=== PATIENT | male | born 1950 | race Caucasian/White ===

== ENCOUNTER → 2018-01-30 13:49 | Outpatient (BNVA) | payer MEDICARE, BC, SELFPAY | PROVIDERS: PCP Family Medicine; Referring Provider Family Medicine; Visit Provider Nurse Practitioner Gerontology | DX: N40.2 Nodular prostate without lower urinary tract symptoms (principal); Z85.828 Personal history of other malignant neoplasm of skin | CPT/HCPCS: 36415; 84153; 99204 ==

== ENCOUNTER 2018-01-30 14:47 | Outpatient (CLI) | payer MEDICARE, BC, SELFPAY ==
[2018-02-03 10:55] LABS: PSA, Screening 46.8 ng/ml (0-4.5)
== END 2018-01-30 15:07 ==
PROVIDERS: Nurse Practitioner Gerontology; PCP Family Medicine; Visit Provider Urology
DX: N40.2 Nodular prostate without lower urinary tract symptoms (principal); Z12.5 Encounter for screening for malignant neoplasm of prostate
CPT/HCPCS: 36415; 84153; 99204

== ENCOUNTER 2018-02-11 00:38 | Outpatient (CLI) | payer MEDICARE, BC, SELFPAY ==
--- NOTE | 2018-02-11 10:10 | W.PM.OP ---
Operative Note Indications: This is a 67-year-old gentleman who has an abnormal digital rectal exam as well as an elevated PSA of 46.8 ng/mL. He presents for ultrasound-guided biopsy of the prostate. Procedure Description: The patient was brought to the radiology suite on 02/11/2018 He was given a mechanical and antibiotic bowel prep. He was placed in the left lateral position. Transrectal imaging of the prostate was performed using a 7 MHz transducer. The prostate was imaged in transverse and longitudinal planes. The prostate volume was calculated at 60 cc. The seminal vesicles were dilated. The peripheral zone appeared enlarged. Transition zone showed a midline hypoechoic corresponding to the palpable abnormality. The periprosthetic nerve block was then performed using 1% Xylocaine without epinephrine. A total of 12 laterally directed biopsies were then taken using ultrasound guidance. Each of the biopsies were sent to pathology for permanent section He tolerated this procedure well. He was cautioned about possible side effects including fevers, chills, blood in the urine, blood from the rectum and blood in the ejaculate. He will follow-up with me in 1-2 weeks to review the pathology results.
--- NOTE | 2018-02-11 10:35 | PROST_PTH ---
PATIENT: Cuauhtemoc Avalos LOC: [facility] U#:[id number] AGE/SX: 67/M ROOM: RE02/11/[address]: Jose Alfredo Bergman MD : 1950 BED: DIS: 02/11/2018 SPEC #: [id number] RECD: 02/11/18 12:42 STATUS: DIDI [facility] #: [id number] FANI: 02/11/18 10:[address]: Jose Alfredo Bergman DEPT: Surgical Specimen RECD BY: Chen Miranda ENTERED: 02/11/18 12:43 SP TYPE: PROST OTHR DR: Zelalem Vital Tissues: 1 - PROSTATE NEEDLE BIOPSY 2 - PROSTATE NEEDLE BIOPSY 3 - PROSTATE NEEDLE BIOPSY 4 - PROSTATE NEEDLE BIOPSY 5 - PROSTATE NEEDLE BIOPSY 6 - PROSTATE NEEDLE BIOPSY 7 - PROSTATE NEEDLE BIOPSY 8 - PROSTATE NEEDLE BIOPSY 9 - PROSTATE NEEDLE BIOPSY 10 - PROSTATE NEEDLE BIOPSY 11 - PROSTATE NEEDLE BIOPSY 12 - PROSTATE NEEDLE BIOPSY Procedures: GROSS AND MICRO LEVEL 4 Comments: [id number]
--- NOTE | 2018-02-11 11:50 | DI.US_ITS ---
SYMPTOMS/DIAGNOSIS: BIOPSY, PROSTATE NODULE TO LEFT POSTERIOR LOBE, N40.2 PROSTATE BIOPSY: Sonography was utilized by Dr. Bergman during the performance of a transrectal prostate gland biopsy. Please refer to the procedure report for complete details.
== END 2018-02-11 00:58 ==
PROVIDERS: PCP Family Medicine; Visit Provider Urology
DX: C61 Malignant neoplasm of prostate (principal); R97.20 Elevated prostate specific antigen [PSA]; N41.0 Acute prostatitis; N40.0 Benign prostatic hyperplasia without lower urinary tract symptoms
CPT/HCPCS: 55700; 76942; 88305

== ENCOUNTER → 2018-02-25 15:15 | Outpatient (BNVA) | payer MEDICARE, BC, SELFPAY | PROVIDERS: PCP Family Medicine; Visit Provider Urology | DX: C61 Malignant neoplasm of prostate (principal) | CPT/HCPCS: 99214 ==

== ENCOUNTER 2018-03-07 01:20 | Outpatient (CLI) | payer MEDICARE, BC, SELFPAY ==
--- NOTE | 2018-03-07 08:52 | DI.NM_ITS ---
SYMPTOM/DIAGNOSIS: PROSTATE CA, C51, ? METS BONE SCAN: The patient received 26 millicuries of Technetium 99 M MDP and whole body imaging was performed according to protocol. There is renal activity noted. There are multiple foci of radiotracer uptake in the axial and appendicular skeleton most suggestive of osseous metastatic disease. Findings include the cervical, thoracic and lumbar spine, pelvis and sacrum. Areas of increased radiotracer uptake are seen in the region of the left maxilla, proximal left humerus and both the proximal left and right femurs. There is also radiotracer uptake in the proximal right humerus. IMPRESSION: Findings consistent with widespread osseous metastatic disease.
[2018-03-07 09:29] LABS: CREATININE 1.14 mg/dL (0.70-1.30)
[2018-03-07] MEDS: Omnipaque 350 MG/ML 50 ML BTL IJ (10:17)
[2018-03-07] MEDS: Omnipaque 350 MG/ML 100 ML BTL IJ (10:17)
[2018-03-07] MEDS: Breeza Beverage 473 ML BTL PO ×2 (10:18)
--- NOTE | 2018-03-07 10:18 | DI.CT_ITS ---
SYMPTOM/DIAGNOSIS: PROSTATE CA, ? METS ABDOMEN AND PELVIC CT: CT scan of the abdomen and pelvis was performed following the uneventful administration of intravenous and oral contrast material. There are no priors for comparison. The visualized lung bases are clear. There are enlarged lymph nodes seen in the subcarinal region incompletely imaged. The largest measures 2.3 cm. in short diameter. There are fawad-aortic enlarged lymph nodes just above the aortic hiatus. The largest measures 2 cm. in maximum diameter. The liver is normal in size. There are multiple hypodense lesions within the liver. They appear to represent cysts. The largest is in the left lobe and measures 2.6 cm. in diameter. No solid hepatic masses are seen. The portal and superior mesenteric veins are patent. The gallbladder is negative. No biliary ductal dilatation is present. The pancreas, spleen and adrenal glands are unremarkable. The kidneys show normal and symmetric enhancement. No solid renal mass or obstruction is seen. There are tiny hypodensities seen in the renal cortices bilaterally. They are too small for further characterization but likely reflect small cysts. There is a 2 mm. non obstructing stone in the upper pole of the left kidney. No ureterolithiasis is seen. The urinary bladder is intact. The prostate gland is heterogeneous and enlarged. There is atherosclerosis of the abdominal aorta but no aneurysmal dilatation is seen. There is extensive fawad-aortic, aorto-caval and iliac adenopathy present. The largest left fawad-aortic lymph node measures 1.9 cm. in short axis. The largest left iliac lymph node measures 2.3 cm. in short diameter. The largest right iliac lymph node measures 3.3 cm. in diameter. No abdominal or pelvic ascites or pneumoperitoneum is present. The bowel shows no evidence of obstruction or inflammation. No evidence of an acute appendicitis is present. Sclerotic osseous lesions are identified consistent with osseous metastatic disease. IMPRESSION: 1. Enlarged heterogeneous prostate gland. 2. Findings of diffuse osseous metastatic disease. 3. Thoracic abdominal and pelvic adenopathy suggestive of metastatic disease. 4. Incidental findings in the abdomen and pelvis as described above.
== END 2018-03-07 01:40 ==
PROVIDERS: PCP Family Medicine; Visit Provider Urology
DX: C61 Malignant neoplasm of prostate (principal); C79.51 Secondary malignant neoplasm of bone; R59.0 Localized enlarged lymph nodes; N20.0 Calculus of kidney
CPT/HCPCS: 36415; 78306; 99214; 74177; 82565; J3490; Q9967

== ENCOUNTER → 2018-03-28 07:49 | Outpatient (BNVA) | payer MEDICARE, BC, SELFPAY | PROVIDERS: PCP Family Medicine; Visit Provider Urology | DX: C61 Malignant neoplasm of prostate (principal) | CPT/HCPCS: 96402; 99211; J9217 ==

== ENCOUNTER 2018-04-17 09:01 | Outpatient (CLI) | payer MEDICARE, BC, SELFPAY ==
[2018-04-17 10:04] LABS: Abs Immature Grans 0.01 k/cumm (0.0-0.09); Absolute Basophil Count 0.02 k/cumm (0.0-0.2); Absolute Eosinophil Count 0.14 k/cumm (0.0-0.7); Absolute Lymphocyte Count 2.33 k/cumm (1.2-3.4); Absolute Monocyte Count 0.62 k/cumm (0.11-0.7); Absolute Neutrophil Count 3.87 k/cumm (1.2-6.7); Basophils % 0.3; HCT 46.8 % (40.0-50.0); Immature Grans % 0.1; Lymphocytes % 33.3; Mean Corp. HGB Concentration 34.2 g/dL (32.0-36.0); Mean Corpuscular Hemoglobin 31.8 pg (27.0-33.0); Monocytes % 8.9; Neutrophils % 55.4; Platelet Count 248 x1000/uL (130-400); RBC 5.03 m/cumm (4.50-6.00); RBC Distribution Width 13.4 % (11.8-14.1); White Blood Cell Count 6.99 k/cumm (4.4-10.8)
[2018-04-17 10:23] LABS: ALT 43 U/L (12-78); AST 24 U/L (15-37); Albumin 3.5 g/dL (3.4-5.0); Anion Gap 6.3 mmol/L (3-11); BUN 17 mg/dL (7-18); Bilirubin, Total 0.5 mg/dL (0.2-1.0); CO2 30.7 mmol/L (21.0-32.0); CREATININE 1.12 mg/dL (0.70-1.30); Calcium 8.7 mg/dL (8.5-10.1); Chloride 104 mmol/L (98-107); Glucose 85 mg/dL (70-100); Potassium 4.1 mmol/L (3.5-5.1); Sodium 141 mmol/L (136-145); Total Protein 6.6 g/dL (6.4-8.2)
[2018-04-17 10:24] LABS: Alkaline Phosphatase 1279 U/L (46-116)
[2018-04-18 10:38] LABS: PSA, Diagnostic 54.6 ng/ml (0-4.5)
[2018-04-20 13:19] LABS: Testosterone, Total 112 ng/dL (240-950)
== END 2018-04-17 09:21 ==
PROVIDERS: PCP Family Medicine; Visit Provider Internal Medicine
DX: C61 Malignant neoplasm of prostate (principal)
CPT/HCPCS: 36415; 80053; 84403; 84153; 85025

== ENCOUNTER 2018-04-25 00:45 | Outpatient (CLI) | payer MEDICARE, BC, SELFPAY ==
--- NOTE | 2018-04-25 13:21 | DI.CT_ITS ---
SYMPTOM/DIAGNOSIS: STAGING EXAM, METASTATIC PROSTATE CA, C61 CT CHEST: CT scan of the chest was performed following the uneventful administration of intravenous contrast material. Comparison CT scan 03/07/18. The visualized thyroid gland is grossly unremarkable. The thoracic aorta is of normal caliber. No aneurysmal dilatation is seen. Heart size is within normal limits. No significant pericardial effusion is seen. There are enlarged lymph nodes seen in the mediastinum, particularly in the superior mediastinum. The largest lymph node measures 1.2 cm in maximal diameter. There are enlarged lymph nodes seen in the posterior mediastinum, the largest measuring almost 2 cm in short axis diameter. No pleural effusion or pneumothorax is identified. No noncalcified pulmonary nodules are seen. No infiltrates are present. The tracheobronchial tree is unremarkable. There are diffuse sclerotic metastases in the bones. No compression fractures are seen in the thoracic spine. The osseous metastatic disease appears more prominent when compared to the nuclear medicine examination from 03/07/18, particularly in the thoracic spine. A repeat bone scan may be considered for re-evaluation. There are again seen multiple hypodense lesions within the liver. IMPRESSION: 1. Diffuse skeletal sclerotic metastases. 2. Thoracic adenopathy
[2018-04-25] MEDS: Omnipaque 350 MG/ML 100 ML BTL IJ (13:24)
[2018-04-25] MEDS: Normal Saline Flush 10 ML SYR IVP (13:26)
== END 2018-04-25 01:05 ==
PROVIDERS: PCP Family Medicine; Visit Provider Internal Medicine
DX: C61 Malignant neoplasm of prostate (principal); C79.51 Secondary malignant neoplasm of bone; R59.0 Localized enlarged lymph nodes
CPT/HCPCS: 71260; J3490

== ENCOUNTER 2018-05-12 11:20 | Outpatient (CLI) | payer MEDICARE, BC, SELFPAY ==
[2018-05-12 11:37] LABS: Abs Immature Grans 0.15 k/cumm (0.0-0.09); Absolute Basophil Count 0.05 k/cumm (0.0-0.2); Absolute Eosinophil Count 0.01 k/cumm (0.0-0.7); Absolute Lymphocyte Count 2.25 k/cumm (1.2-3.4); Absolute Monocyte Count 1.22 k/cumm (0.11-0.7); Absolute Neutrophil Count 4.35 k/cumm (1.2-6.7); Basophils % 0.6; Eosinophils % 0.1; HCT 40.9 % (40.0-50.0); HGB 13.6 g/dL (13.5-17.5); Immature Grans % 1.9; Mean Corp. HGB Concentration 33.3 g/dL (32.0-36.0); Mean Corpuscular Hemoglobin 31.7 pg (27.0-33.0); Mean Corpuscular Volume 95.3 fL (80-95); Mean Platelet Volume 10.1 fL (8.0-11.0); Monocytes % 15.2; Neutrophils % 54.2; Platelet Count 242 x1000/uL (130-400); RBC 4.29 m/cumm (4.50-6.00); White Blood Cell Count 8.03 k/cumm (4.4-10.8)
[2018-05-12 11:48] LABS: ALT 42 U/L (12-78); AST 23 U/L (15-37); Albumin 3.4 g/dL (3.4-5.0); Alkaline Phosphatase 899 U/L (46-116); Anion Gap 4.4 mmol/L (3-11); BUN 17 mg/dL (7-18); Bilirubin, Total 0.4 mg/dL (0.2-1.0); CO2 30.6 mmol/L (21.0-32.0); CREATININE 1.04 mg/dL (0.70-1.30); Calcium 8.7 mg/dL (8.5-10.1); Chloride 105 mmol/L (98-107); Glucose 101 mg/dL (70-100); Potassium 4.5 mmol/L (3.5-5.1); Sodium 140 mmol/L (136-145); Total Protein 6.4 g/dL (6.4-8.2)
[2018-05-13 11:37] LABS: PSA, Diagnostic 3.9 ng/ml (0-4.5)
[2018-05-15 11:08] LABS: Testosterone, Total <7.0 ng/dL (240-950)
== END 2018-05-12 11:40 ==
PROVIDERS: PCP Family Medicine; Visit Provider Internal Medicine
DX: C61 Malignant neoplasm of prostate (principal)
CPT/HCPCS: 36415; 80053; 84403; 84153; 85025

== ENCOUNTER 2018-06-02 08:07 | Outpatient (CLI) | payer MEDICARE, BC, SELFPAY ==
[2018-06-02 08:38] LABS: Abs Immature Grans 0.07 k/cumm (0.0-0.09); Absolute Basophil Count 0.05 k/cumm (0.0-0.2); Absolute Eosinophil Count 0.01 k/cumm (0.0-0.7); Absolute Lymphocyte Count 1.89 k/cumm (1.2-3.4); Absolute Monocyte Count 1.57 k/cumm (0.11-0.7); Absolute Neutrophil Count 5.63 k/cumm (1.2-6.7); Basophils % 0.5; Eosinophils % 0.1; HGB 12.7 g/dL (13.5-17.5); Immature Grans % 0.8; Lymphocytes % 20.5; Mean Corp. HGB Concentration 33.4 g/dL (32.0-36.0); Mean Corpuscular Hemoglobin 31.9 pg (27.0-33.0); Mean Corpuscular Volume 95.5 fL (80-95); Mean Platelet Volume 10.5 fL (8.0-11.0); Neutrophils % 61.1; Platelet Count 178 x1000/uL (130-400); RBC 3.98 m/cumm (4.50-6.00); White Blood Cell Count 9.22 k/cumm (4.4-10.8)
[2018-06-02 08:56] LABS: Anisocytosis 1+; Diff Comment Diff Reviewed; Polychromasia Present
[2018-06-02 08:57] LABS: ALT 30 U/L (12-78); AST 20 U/L (15-37); Albumin 3.3 g/dL (3.4-5.0); Alkaline Phosphatase 445 U/L (46-116); Anion Gap 5.1 mmol/L (3-11); BUN 19 mg/dL (7-18); Bilirubin, Total 0.4 mg/dL (0.2-1.0); CO2 29.9 mmol/L (21.0-32.0); CREATININE 1.06 mg/dL (0.70-1.30); Calcium 8.6 mg/dL (8.5-10.1); Chloride 106 mmol/L (98-107); Glucose 91 mg/dL (70-100); Potassium 4.6 mmol/L (3.5-5.1); Sodium 141 mmol/L (136-145); Total Protein 6.3 g/dL (6.4-8.2)
[2018-06-03 09:11] LABS: PSA, Diagnostic 1.8 ng/ml (0-4.5)
[2018-06-05 22:20] LABS: Testosterone, Total <7.0 ng/dL (240-950)
== END 2018-06-02 08:27 ==
PROVIDERS: PCP Family Medicine; Visit Provider Internal Medicine
DX: C61 Malignant neoplasm of prostate (principal)
CPT/HCPCS: 36415; 80053; 84403; 84153; 85025

== ENCOUNTER 2018-06-23 12:36 | Outpatient (CLI) | payer MEDICARE, BC, SELFPAY ==
[2018-06-23 13:02] LABS: Abs Immature Grans 0.11 k/cumm (0.0-0.09); Absolute Basophil Count 0.04 k/cumm (0.0-0.2); Absolute Eosinophil Count 0.01 k/cumm (0.0-0.7); Absolute Lymphocyte Count 1.95 k/cumm (1.2-3.4); Absolute Monocyte Count 1.05 k/cumm (0.11-0.7); Absolute Neutrophil Count 4.57 k/cumm (1.2-6.7); Basophils % 0.5; Eosinophils % 0.1; HCT 36.4 % (40.0-50.0); HGB 12.1 g/dL (13.5-17.5); Immature Grans % 1.4; Lymphocytes % 25.2; Mean Corp. HGB Concentration 33.2 g/dL (32.0-36.0); Mean Corpuscular Hemoglobin 32.4 pg (27.0-33.0); Mean Corpuscular Volume 97.3 fL (80-95); Mean Platelet Volume 10.2 fL (8.0-11.0); Monocytes % 13.6; Neutrophils % 59.2; Platelet Count 187 x1000/uL (130-400); RBC 3.74 m/cumm (4.50-6.00); RBC Distribution Width 16.9 % (11.8-14.1); White Blood Cell Count 7.73 k/cumm (4.4-10.8)
[2018-06-23 13:29] LABS: ALT 29 U/L (12-78); AST 19 U/L (15-37); Albumin 3.3 g/dL (3.4-5.0); Alkaline Phosphatase 240 U/L (46-116); Anion Gap 5.9 mmol/L (3-11); BUN 14 mg/dL (7-18); Bilirubin, Total 0.4 mg/dL (0.2-1.0); CO2 30.1 mmol/L (21.0-32.0); CREATININE 0.91 mg/dL (0.70-1.30); Calcium 8.6 mg/dL (8.5-10.1); Chloride 105 mmol/L (98-107); Glucose 113 mg/dL (70-100); Potassium 4.5 mmol/L (3.5-5.1); Sodium 141 mmol/L (136-145)
[2018-06-24 09:15] LABS: PSA, Diagnostic 1.4 ng/ml (0-4.5)
[2018-06-25 06:22] LABS: Testosterone, Total <7.0 ng/dL (240-950)
== END 2018-06-23 12:56 ==
PROVIDERS: PCP Family Medicine; Visit Provider Internal Medicine
DX: C61 Malignant neoplasm of prostate (principal)
CPT/HCPCS: 36415; 80053; 84403; 84153; 85025

== ENCOUNTER 2018-07-14 08:02 | Outpatient (CLI) | payer MEDICARE, BC, SELFPAY ==
[2018-07-14 08:30] LABS: Absolute Monocyte Count 1.23 k/cumm (0.11-0.7); HGB 12.5 g/dL (13.5-17.5); Mean Corp. HGB Concentration 32.9 g/dL (32.0-36.0); Mean Corpuscular Hemoglobin 32.9 pg (27.0-33.0); Mean Platelet Volume 10.3 fL (8.0-11.0); Platelet Count 197 x1000/uL (130-400); RBC Distribution Width 17.7 % (11.8-14.1); White Blood Cell Count 7.67 k/cumm (4.4-10.8)
[2018-07-14 08:42] LABS: ALT 32 U/L (12-78); AST 18 U/L (15-37); Albumin 3.3 g/dL (3.4-5.0); Alkaline Phosphatase 180 U/L (46-116); Anion Gap 5.4 mmol/L (3-11); BUN 16 mg/dL (7-18); Bilirubin, Total 0.4 mg/dL (0.2-1.0); CO2 29.6 mmol/L (21.0-32.0); CREATININE 0.93 mg/dL (0.70-1.30); Calcium 8.9 mg/dL (8.5-10.1); Chloride 108 mmol/L (98-107); Glucose 98 mg/dL (70-100); Potassium 4.4 mmol/L (3.5-5.1); Sodium 143 mmol/L (136-145); Total Protein 5.8 g/dL (6.4-8.2)
[2018-07-14 09:00] LABS: Absolute Lymphocyte Count 2.45 k/cumm (1.2-3.4); Absolute Neutrophil Count 3.91 k/cumm (1.2-6.7)
[2018-07-14 09:01] LABS: Anisocytosis 1+; Diff Comment Manual Differential; Macrocytosis 1+; Polychromasia Present
[2018-07-15 09:25] LABS: PSA, Diagnostic 0.9 ng/ml (0-4.5)
[2018-07-16 07:36] LABS: Testosterone, Total 12 ng/dL (240-950)
== END 2018-07-14 08:22 ==
PROVIDERS: PCP Family Medicine; Visit Provider Internal Medicine
DX: C61 Malignant neoplasm of prostate (principal)
CPT/HCPCS: 36415; 80053; 84403; 84153; 85025

== ENCOUNTER 2018-08-04 16:01 | Outpatient (CLI) | payer MEDICARE, BC, SELFPAY ==
[2018-08-04 16:25] LABS: Abs Immature Grans 0.14 k/cumm (0.0-0.09); HCT 36.9 % (40.0-50.0); HGB 12.1 g/dL (13.5-17.5); Mean Corp. HGB Concentration 32.8 g/dL (32.0-36.0); Mean Corpuscular Hemoglobin 33.4 pg (27.0-33.0); Mean Corpuscular Volume 101.9 fL (80-95); Platelet Count 213 x1000/uL (130-400); RBC 3.62 m/cumm (4.50-6.00); RBC Distribution Width 17.8 % (11.8-14.1); White Blood Cell Count 6.63 k/cumm (4.4-10.8)
[2018-08-04 17:01] LABS: Absolute Lymphocyte Count 1.26 k/cumm (1.2-3.4); Absolute Monocyte Count 0.73 k/cumm (0.11-0.7); Absolute Neutrophil Count 4.51 k/cumm (1.2-6.7); Atypical Lymphocytes % 4
[2018-08-04 17:02] LABS: Diff Comment Manual Differential; Macrocytosis 2+
[2018-08-04 18:18] LABS: ALT 31 U/L (12-78); AST 15 U/L (15-37); Albumin 3.4 g/dL (3.4-5.0); Alkaline Phosphatase 139 U/L (46-116); Anion Gap 5.5 mmol/L (3-11); BUN 17 mg/dL (7-18); Bilirubin, Total 0.4 mg/dL (0.2-1.0); CO2 29.5 mmol/L (21.0-32.0); CREATININE 0.83 mg/dL (0.70-1.30); Calcium 8.6 mg/dL (8.5-10.1); Chloride 105 mmol/L (98-107); Glucose 97 mg/dL (70-100); Potassium 4.6 mmol/L (3.5-5.1); Sodium 140 mmol/L (136-145); Total Protein 5.7 g/dL (6.4-8.2)
[2018-08-06 09:46] LABS: PSA, Diagnostic 0.7 ng/ml (0-4.5)
[2018-08-08 16:37] LABS: Testosterone, Total <7.0 ng/dL (240-950)
== END 2018-08-04 16:21 ==
PROVIDERS: PCP Family Medicine; Visit Provider Internal Medicine
DX: C61 Malignant neoplasm of prostate (principal)
CPT/HCPCS: 36415; 80053; 84403; 84153; 85025

== ENCOUNTER 2018-09-01 09:18 | Outpatient (CLI) | payer MEDICARE, BC, SELFPAY ==
[2018-09-01 09:55] LABS: Abs Immature Grans 0.01 k/cumm (0.0-0.09); Absolute Basophil Count 0.02 k/cumm (0.0-0.2); Absolute Eosinophil Count 0.04 k/cumm (0.0-0.7); Absolute Lymphocyte Count 1.16 k/cumm (1.2-3.4); Absolute Monocyte Count 0.88 k/cumm (0.11-0.7); Absolute Neutrophil Count 3.42 k/cumm (1.2-6.7); Basophils % 0.4; Eosinophils % 0.7; HCT 37.6 % (40.0-50.0); HGB 11.9 g/dL (13.5-17.5); Immature Grans % 0.2; Mean Corp. HGB Concentration 31.6 g/dL (32.0-36.0); Mean Corpuscular Hemoglobin 32.9 pg (27.0-33.0); Mean Corpuscular Volume 103.9 fL (80-95); Mean Platelet Volume 9.8 fL (8.0-11.0); Monocytes % 15.9; Neutrophils % 61.8; Platelet Count 235 x1000/uL (130-400); RBC 3.62 m/cumm (4.50-6.00); RBC Distribution Width 15.9 % (11.8-14.1); White Blood Cell Count 5.53 k/cumm (4.4-10.8)
[2018-09-01 10:10] LABS: ALT 27 U/L (12-78); AST 17 U/L (15-37); Albumin 2.9 g/dL (3.4-5.0); Alkaline Phosphatase 129 U/L (46-116); Anion Gap 7.9 mmol/L (3-11); BUN 20 mg/dL (7-18); Bilirubin, Total 0.3 mg/dL (0.2-1.0); CO2 27.1 mmol/L (21.0-32.0); CREATININE 0.89 mg/dL (0.70-1.30); Chloride 108 mmol/L (98-107); Glucose 91 mg/dL (70-100); Potassium 4.3 mmol/L (3.5-5.1); Sodium 143 mmol/L (136-145); Total Protein 5.7 g/dL (6.4-8.2)
[2018-09-01 10:15] LABS: Calcium 8.4 mg/dL (8.5-10.1)
[2018-09-02 10:26] LABS: PSA, Diagnostic 0.5 ng/ml (0-4.5)
[2018-09-03 08:17] LABS: Testosterone, Total <7.0 ng/dL (240-950)
== END 2018-09-01 09:38 ==
PROVIDERS: PCP Family Medicine; Visit Provider Internal Medicine
DX: C61 Malignant neoplasm of prostate (principal)
CPT/HCPCS: 36415; 80053; 84403; 84153; 85025

== ENCOUNTER 2018-09-02 00:45 | Outpatient (CLI) | payer MEDICARE, BC, SELFPAY ==
--- NOTE | 2018-09-02 10:00 | DI.CT_ITS ---
SYMPTOMS/DIAGNOSIS: PROSTATE CA METASTATIC TO MULTIPLE SITES, C61, RESTAGING CHEST, ABDOMEN AND PELVIS CT: CT examination of the chest, abdomen and pelvis was performed with a bolus infusion of 100 cc's of Omnipaque 350 and ingestion of dilute barium. The examination is compared with previous chest CT of 04/25/[address] of 03/07/18. Note is made of widespread bony sclerotic lesions more prominent than on the previous examination particularly in the thoracic and lumbar spine. The findings are consistent with widespread prostatic metastases. No focal lung lesion identified. There are trace bilateral pleural effusions which were not previously present and there are minimal areas of atelectasis in the lung bases bilaterally along with question of slight irregular appearance of the posterior pleura raising the possibility of small pleural based masses. Previously described posterior and superior mediastinal adenopathy is less prominent on today's examination. A sample lymph node in the superior mediastinum left paratracheal measures 11 x 7 mm in diameter on today's examination as compared to 14 x 9 mm on the previous study. No evidence of pulmonary embolic disease. No thoracic aortic dissection or aneurysm. No abnormality of the tracheobronchial tree. Multiple low attenuation hepatic lesions are noted as seen on the previous examination. These appear grossly unchanged in comparison with the previous examination and appear consistent with cysts, the largest in the left lobe measuring about 26 mm in diameter. Para-aortic and paracaval adenopathy noted on previous study of 03/07/18 is significantly decreased on today's examination. Largest visible nodes now measure roughly 1 cm in diameter as compared to up to 3.3 cm in diameter on the previous examination. Spleen is unremarkable. Pancreas is unremarkable. Gallbladder and bile ducts are CT normal. Adrenals are unremarkable in appearance bilaterally. Small bilateral presumed renal cysts are noted. Nonobstructing left renal calculi noted. No evidence of renal mass or hydronephrosis. No significant abdominal wall hernia seen. No new abdominal or pelvic adenopathy. No evidence of bowel obstruction. Urinary bladder wall is thickened, urinary bladder is contracted and this finding may represent post radiation cystitis, infectious cystitis or simply be a result of the contracted state of the bladder. CONCLUSION: 1. New bilateral pleural effusions and question tiny pleural based masses posteriorly, question pleural metastatic disease not present on previous CT's of 04/25/18 and 03/07/18. 2. Increased prominence of widespread bony metastases. 3. Interval decrease in mediastinal abdominal and pelvic adenopathy in comparison with the previous examinations.
--- NOTE | 2018-09-02 10:00 | DI.NM_ITS ---
SYMPTOMS/DIAGNOSIS: PROSTATE CA METASTATIC TO MULTIPLE SITES, C61, RESTAGING BONE SCAN: Whole body bone scan was performed with intravenous infusion of 24.5 mCi of technetium 99 labelled methylene diphosphonate. Examination is compared with the previous examination of 03/07/18. The patient reportedly has a history of metastatic prostate carcinoma. On today's examination, there is a decrease in intensity of most visible lesions in comparison with the previous examination with the exception of some left sacral lesions and lower thoracic vertebral lesions. Interval decrease in number of lesions seen is also noted. CONCLUSION: Findings consistent with waxing and waning metastatic disease. I would note that the CT obtained today showed increasing sclerosis of multiple vertebral bodies, which can indicate some interval healing of previously lytic lesions, but which is an indeterminate finding.
[2018-09-02] MEDS: Breeza Beverage 473 ML BTL PO ×2 (10:41→10:42)
[2018-09-02] MEDS: Omnipaque 350 MG/ML 100 ML BTL IJ (10:42)
[2018-09-02] MEDS: Omnipaque 350 MG/ML 50 ML BTL PO (10:42)
== END 2018-09-02 01:05 ==
PROVIDERS: PCP Family Medicine; Visit Provider Internal Medicine
DX: C61 Malignant neoplasm of prostate (principal); C79.51 Secondary malignant neoplasm of bone; J90 Pleural effusion, not elsewhere classified; C77.2 Secondary and unspecified malignant neoplasm of intra-abdominal lymph nodes; R91.8 Other nonspecific abnormal finding of lung field; R59.0 Localized enlarged lymph nodes
CPT/HCPCS: 74177; 78306; 71260; J3490; Q9967

== ENCOUNTER 2018-10-13 09:40 | Outpatient (CLI) | payer MEDICARE, BC, SELFPAY ==
[2018-10-13 10:42] LABS: ALT 29 U/L (12-78); AST 13 U/L (15-37); Albumin 3.6 g/dL (3.4-5.0); Alkaline Phosphatase 181 U/L (46-116); Anion Gap 5.6 mmol/L (3-11); BUN 17 mg/dL (7-18); Bilirubin, Total 0.5 mg/dL (0.2-1.0); CO2 28.4 mmol/L (21.0-32.0); CREATININE 0.85 mg/dL (0.70-1.30); Calcium 9.1 mg/dL (8.5-10.1); Chloride 105 mmol/L (98-107); Glucose 103 mg/dL (70-100); Potassium 4.6 mmol/L (3.5-5.1); Sodium 139 mmol/L (136-145); Total Protein 6.6 g/dL (6.4-8.2)
[2018-10-14 10:25] LABS: PSA, Diagnostic 0.3 ng/ml (0-6.5)
[2018-10-15 14:49] LABS: Testosterone, Total <7.0 ng/dL (240-950)
== END 2018-10-13 10:00 ==
PROVIDERS: PCP Family Medicine; Visit Provider Internal Medicine
DX: C61 Malignant neoplasm of prostate (principal)
CPT/HCPCS: 36415; 80053; 84403; 84153

== ENCOUNTER 2018-11-19 13:48 | Outpatient (CLI) | payer MEDICARE, BC, SELFPAY ==
[2018-11-19 14:11] LABS: Abs Immature Grans 0.01 k/cumm (0.0-0.09); Absolute Basophil Count 0.02 k/cumm (0.0-0.2); Absolute Eosinophil Count 0.02 k/cumm (0.0-0.7); Absolute Lymphocyte Count 1.35 k/cumm (1.2-3.4); Absolute Neutrophil Count 3.93 k/cumm (1.2-6.7); Basophils % 0.3; Eosinophils % 0.3; HCT 44.5 % (40.0-50.0); HGB 14.9 g/dL (13.5-17.5); Immature Grans % 0.2; Lymphocytes % 23.2; Mean Corp. HGB Concentration 33.5 g/dL (32.0-36.0); Mean Corpuscular Hemoglobin 32.1 pg (27.0-33.0); Mean Corpuscular Volume 95.9 fL (80-95); Mean Platelet Volume 10.3 fL (8.0-11.0); Monocytes % 8.6; Neutrophils % 67.4; Platelet Count 244 x1000/uL (130-400); RBC 4.64 m/cumm (4.50-6.00); RBC Distribution Width 13.1 % (11.8-14.1); White Blood Cell Count 5.83 k/cumm (4.4-10.8)
[2018-11-19 14:26] LABS: ALT 35 U/L (12-78); AST 21 U/L (15-37); Albumin 3.5 g/dL (3.4-5.0); Alkaline Phosphatase 136 U/L (46-116); Anion Gap 9.1 mmol/L (3-11); BUN 19 mg/dL (7-18); Bilirubin, Total 0.5 mg/dL (0.2-1.0); CO2 25.9 mmol/L (21.0-32.0); Calcium 8.6 mg/dL (8.5-10.1); Chloride 105 mmol/L (98-107); Glucose 103 mg/dL (70-100); Potassium 4.5 mmol/L (3.5-5.1); Sodium 140 mmol/L (136-145); Total Protein 6.5 g/dL (6.4-8.2)
[2018-11-23 15:51] LABS: Testosterone, Total <7.0 ng/dL (240-950)
[2018-11-24 10:49] LABS: PSA, Diagnostic 0.3 ng/ml (0-6.5)
== END 2018-11-19 14:08 ==
PROVIDERS: PCP Family Medicine; Visit Provider Internal Medicine
DX: C61 Malignant neoplasm of prostate (principal)
CPT/HCPCS: 36415; 80053; 84153; 84403; 85025

== ENCOUNTER 2018-11-20 01:15 | Outpatient (CLI) | payer MEDICARE, BC, SELFPAY ==
--- NOTE | 2018-11-20 08:00 | DI.CT_ITS ---
SYMPTOM/DIAGNOSIS: PROSTATE CANCER C61, LUNG NODULE N91.8 CT CHEST: CT scan of the chest was performed following the uneventful administration of intravenous contrast material. Comparison is 04/25/18 The visualized thyroid gland is stable. The thoracic aorta is of normal caliber. No aneurysmal dilatation is seen. No evidence of dissection. The heart is within normal limits in size. No significant pericardial effusion is present. There is no significant thoracic adenopathy. No pleural effusion or pneumothorax is identified. There are again seen multiple hypodense lesions in the liver. They are round and well circumscribed and appear most consistent with cysts. There is a nonobstructing 2 mm stone in the upper pole of the left kidney. No pulmonary nodules are seen. There has been resolution of the pleural effusion. No focal consolidating infiltrates are identified. There is again seen extensive sclerotic metastatic disease. IMPRESSION: 1. No evidence of a pulmonary nodule 2. Resolution of the patient's previously seen pleural effusions 3. Extensive osseous metastatic disease.
[2018-11-20] MEDS: Omnipaque 350 MG/ML 100 ML BTL IJ (09:02)
== END 2018-11-20 01:35 ==
PROVIDERS: PCP Family Medicine; Visit Provider Internal Medicine
DX: C61 Malignant neoplasm of prostate (principal); R91.8 Other nonspecific abnormal finding of lung field; C79.51 Secondary malignant neoplasm of bone; N20.0 Calculus of kidney; K76.89 Other specified diseases of liver
CPT/HCPCS: 71260; J3490

== ENCOUNTER 2018-12-25 10:06 | Outpatient (CLI) | payer MEDICARE, BC, SELFPAY ==
[2018-12-25 10:28] LABS: Abs Immature Grans 0.01 k/cumm (0.0-0.09); Absolute Basophil Count 0.03 k/cumm (0.0-0.2); Absolute Eosinophil Count 0.08 k/cumm (0.0-0.7); Absolute Lymphocyte Count 2.03 k/cumm (1.2-3.4); Absolute Monocyte Count 0.65 k/cumm (0.11-0.7); Basophils % 0.6; Eosinophils % 1.6; HCT 43.3 % (40.0-50.0); HGB 14.8 g/dL (13.5-17.5); Immature Grans % 0.2; Lymphocytes % 40.6; Mean Corp. HGB Concentration 34.2 g/dL (32.0-36.0); Mean Corpuscular Hemoglobin 32.5 pg (27.0-33.0); Mean Corpuscular Volume 95.2 fL (80-95); Mean Platelet Volume 9.9 fL (8.0-11.0); Platelet Count 238 x1000/uL (130-400); RBC 4.55 m/cumm (4.50-6.00); RBC Distribution Width 13.9 % (11.8-14.1)
[2018-12-25 10:52] LABS: ALT 34 U/L (16-63); AST 18 U/L (15-37); Albumin 3.3 g/dL (3.4-5.0); Alkaline Phosphatase 114 U/L (46-116); Anion Gap 6.2 mmol/L (3-11); BUN 17 mg/dL (7-18); Bilirubin, Total 0.6 mg/dL (0.2-1.0); CO2 29.8 mmol/L (21.0-32.0); CREATININE 0.96 mg/dL (0.70-1.30); Calcium 8.7 mg/dL (8.5-10.1); Chloride 105 mmol/L (98-107); Glucose 98 mg/dL (70-100); Potassium 4.3 mmol/L (3.5-5.1); Sodium 141 mmol/L (136-145); Total Protein 6.1 g/dL (6.4-8.2)
[2018-12-26 10:36] LABS: PSA, Diagnostic 0.2 ng/ml (0-6.5)
[2018-12-27 07:48] LABS: Testosterone, Total <7.0 ng/dL (240-950)
== END 2018-12-25 10:26 ==
PROVIDERS: PCP Family Medicine; Visit Provider Internal Medicine
DX: C61 Malignant neoplasm of prostate (principal)
CPT/HCPCS: 36415; 80053; 84403; 84153; 85025

== ENCOUNTER 2019-02-09 12:05 | Outpatient (CLI) | payer MEDICARE, BC, SELFPAY ==
[2019-02-09 12:44] LABS: Abs Immature Grans 0.01 k/cumm (0.0-0.09); Absolute Basophil Count 0.02 k/cumm (0.0-0.2); Absolute Eosinophil Count 0.06 k/cumm (0.0-0.7); Absolute Lymphocyte Count 1.42 k/cumm (1.2-3.4); Absolute Monocyte Count 0.63 k/cumm (0.11-0.7); Absolute Neutrophil Count 3.62 k/cumm (1.2-6.7); Basophils % 0.3; HCT 41.8 % (40.0-50.0); HGB 13.7 g/dL (13.5-17.5); Immature Grans % 0.2; Lymphocytes % 24.7; Mean Corp. HGB Concentration 32.8 g/dL (32.0-36.0); Mean Corpuscular Hemoglobin 32.4 pg (27.0-33.0); Mean Corpuscular Volume 98.8 fL (80-95); Monocytes % 10.9; Neutrophils % 62.9; Platelet Count 253 x1000/uL (130-400); RBC 4.23 m/cumm (4.50-6.00); RBC Distribution Width 14.2 % (11.8-14.1); White Blood Cell Count 5.76 k/cumm (4.4-10.8)
[2019-02-09 13:36] LABS: ALT 30 U/L (16-63); AST 16 U/L (15-37); Albumin 2.1 g/dL (3.4-5.0); Alkaline Phosphatase 108 U/L (46-116); Anion Gap 7.4 mmol/L (3-11); BUN 14 mg/dL (7-18); Bilirubin, Total 0.7 mg/dL (0.2-1.0); CO2 29.6 mmol/L (21.0-32.0); CREATININE 0.92 mg/dL (0.70-1.30); Calcium 8.9 mg/dL (8.5-10.1); Chloride 105 mmol/L (98-107); Glucose 103 mg/dL (70-100); Potassium 4.8 mmol/L (3.5-5.1); Sodium 142 mmol/L (136-145); Total Protein 5.9 g/dL (6.4-8.2)
[2019-02-10 12:12] LABS: PSA, Diagnostic 0.2 ng/mL (0.0-6.5)
[2019-02-12 08:34] LABS: Testosterone, Total <7.0 ng/dL (240-950)
== END 2019-02-09 12:25 ==
PROVIDERS: PCP Family Medicine; Visit Provider Internal Medicine
DX: C61 Malignant neoplasm of prostate (principal)
CPT/HCPCS: 36415; 80053; 84403; 84153; 85025

== ENCOUNTER 2019-02-10 09:54 | Outpatient (CLI) | payer MEDICARE, BC, SELFPAY ==
[2019-02-10 12:27] LABS: Calculated LDL 71 mg/dL; Cholesterol 164 mg/dL (50-200); HDL Cholesterol 77 mg/dL (40-60); Triglyceride 80 mg/dL (30-150)
[2019-02-11 11:58] LABS: Hepatitis C Ab w Rflx HCV PCR Negative (Negative)
== END 2019-02-10 10:14 ==
PROVIDERS: PCP Family Medicine; Visit Provider Family Medicine
DX: Z11.59 Encounter for screening for other viral diseases (principal); Z13.6 Encounter for screening for cardiovascular disorders
CPT/HCPCS: 36415; 80061; 86803

== ENCOUNTER 2019-03-26 09:01 | Outpatient (CLI) | payer MEDICARE, BC, SELFPAY ==
[2019-03-26 09:57] LABS: Abs Immature Grans 0.01 k/cumm (0.0-0.09); Absolute Basophil Count 0.03 k/cumm (0.0-0.2); Absolute Eosinophil Count 0.13 k/cumm (0.0-0.7); Absolute Lymphocyte Count 2.62 k/cumm (1.2-3.4); Absolute Monocyte Count 0.63 k/cumm (0.11-0.7); Absolute Neutrophil Count 2.63 k/cumm (1.2-6.7); Basophils % 0.5; Eosinophils % 2.1; HCT 41.9 % (40.0-50.0); HGB 14.1 g/dL (13.5-17.5); Immature Grans % 0.2; Lymphocytes % 43.3; Mean Corp. HGB Concentration 33.7 g/dL (32.0-36.0); Mean Corpuscular Hemoglobin 33.3 pg (27.0-33.0); Mean Corpuscular Volume 99.1 fL (80-95); Mean Platelet Volume 9.8 fL (8.0-11.0); Monocytes % 10.4; Neutrophils % 43.5; Platelet Count 255 x1000/uL (130-400); RBC 4.23 m/cumm (4.50-6.00); RBC Distribution Width 12.6 % (11.8-14.1); White Blood Cell Count 6.05 k/cumm (4.4-10.8)
[2019-03-26 10:18] LABS: ALT 28 U/L (16-63); AST 17 U/L (15-37); Albumin 3.2 g/dL (3.4-5.0); Alkaline Phosphatase 103 U/L (46-116); Anion Gap 6.5 mmol/L (3-11); BUN 16 mg/dL (7-18); Bilirubin, Total 0.4 mg/dL (0.2-1.0); CO2 30.5 mmol/L (21.0-32.0); CREATININE 0.98 mg/dL (0.70-1.30); Calcium 8.7 mg/dL (8.5-10.1); Chloride 106 mmol/L (98-107); Glucose 94 mg/dL (74-106); Potassium 4.5 mmol/L (3.5-5.1); Sodium 143 mmol/L (136-145); Total Protein 5.8 g/dL (6.4-8.2)
[2019-03-27 11:29] LABS: PSA, Diagnostic 0.1 ng/mL (0.0-6.5)
[2019-03-28 02:43] LABS: Testosterone, Total <7.0 ng/dL (240-950)
== END 2019-03-26 09:21 ==
PROVIDERS: PCP Family Medicine; Visit Provider Internal Medicine
DX: C61 Malignant neoplasm of prostate (principal)
CPT/HCPCS: 36415; 80053; 84403; 84153; 85025

== ENCOUNTER 2019-06-15 07:48 | Outpatient (CLI) | payer BC, MEDICARE, SELFPAY ==
[2019-06-15 08:26] LABS: Abs Immature Grans 0.01 k/cumm (0.0-0.09); Absolute Basophil Count 0.03 k/cumm (0.0-0.2); Absolute Eosinophil Count 0.16 k/cumm (0.0-0.7); Absolute Monocyte Count 0.78 k/cumm (0.11-0.7); Absolute Neutrophil Count 3.33 k/cumm (1.2-6.7); Basophils % 0.4; Eosinophils % 2.3; HGB 14.6 g/dL (13.5-17.5); Immature Grans % 0.1 %; Lymphocytes % 38.5; Mean Corpuscular Hemoglobin 32.8 pg (27.0-33.0); Mean Corpuscular Volume 96.6 fL (80-95); Monocytes % 11.1; Neutrophils % 47.6; Platelet Count 261 x1000/uL (130-400); RBC 4.45 m/cumm (4.50-6.00); RBC Distribution Width 13.1 % (11.8-14.1); White Blood Cell Count 7.01 k/cumm (4.4-10.8)
[2019-06-15 08:52] LABS: ALT 29 U/L (16-63); AST 18 U/L (15-37); Albumin 3.3 g/dL (3.4-5.0); Alkaline Phosphatase 91 U/L (46-116); Anion Gap 9.2 mmol/L (3-11); BUN 14 mg/dL (7-18); Bilirubin, Total 0.7 mg/dL (0.2-1.0); CO2 26.8 mmol/L (21.0-32.0); CREATININE 0.98 mg/dL (0.70-1.30); Calcium 8.6 mg/dL (8.5-10.1); Chloride 106 mmol/L (98-107); Glucose 104 mg/dL (74-106); Potassium 4.1 mmol/L (3.5-5.1); Sodium 142 mmol/L (136-145); Total Protein 6.2 g/dL (6.4-8.2)
[2019-06-16 11:00] LABS: PSA, Diagnostic 0.1 ng/mL (0.0-6.5)
[2019-06-16 22:24] LABS: Testosterone, Total <7.0 ng/dL (240-950)
== END 2019-06-15 08:08 ==
PROVIDERS: PCP Family Medicine; Visit Provider Internal Medicine
DX: C61 Malignant neoplasm of prostate (principal)
CPT/HCPCS: 36415; 80053; 84403; 84153; 85025

== ENCOUNTER 2019-09-16 03:40 | Outpatient (CLI) | payer BC, MEDICARE, SELFPAY ==
[2019-09-16 09:30] LABS: Abs Immature Grans 0.01 k/cumm (0.0-0.09); Absolute Basophil Count 0.04 k/cumm (0.0-0.2); Absolute Eosinophil Count 0.13 k/cumm (0.0-0.7); Absolute Lymphocyte Count 2.75 k/cumm (1.2-3.4); Absolute Monocyte Count 0.65 k/cumm (0.11-0.7); Absolute Neutrophil Count 2.33 k/cumm (1.2-6.7); Basophils % 0.7; Eosinophils % 2.2; HCT 44.3 % (40.0-50.0); HGB 14.8 g/dL (13.5-17.5); Immature Grans % 0.2 %; Lymphocytes % 46.5; Mean Corp. HGB Concentration 33.4 g/dL (32.0-36.0); Mean Corpuscular Hemoglobin 32.8 pg (27.0-33.0); Mean Corpuscular Volume 98.2 fL (80-95); Mean Platelet Volume 10.3 fL (8.0-11.0); Neutrophils % 39.4; Platelet Count 276 x1000/uL (130-400); RBC 4.51 m/cumm (4.50-6.00); RBC Distribution Width 13.1 % (11.8-14.1); White Blood Cell Count 5.91 k/cumm (4.4-10.8)
[2019-09-16 10:16] LABS: ALT 32 U/L (16-63); AST 22 U/L (15-37); Albumin 3.5 g/dL (3.4-5.0); Alkaline Phosphatase 99 U/L (46-116); Anion Gap 9.8 mmol/L (3-11); BUN 17 mg/dL (7-18); Bilirubin, Total 0.7 mg/dL (0.2-1.0); CO2 26.2 mmol/L (21.0-32.0); CREATININE 1.18 mg/dL (0.70-1.30); Calcium 8.9 mg/dL (8.5-10.1); Chloride 105 mmol/L (98-107); Glucose 108 mg/dL (74-106); Potassium 4.3 mmol/L (3.5-5.1); Sodium 141 mmol/L (136-145); Total Protein 5.9 g/dL (6.4-8.2)
[2019-09-17 11:38] LABS: PSA, Ultrasensitive 0.09 ng/mL (<= 6.5)
[2019-09-18 07:55] LABS: Testosterone, Total <7.0 ng/dL (240-950)
== END 2019-09-16 04:00 ==
PROVIDERS: PCP Family Medicine; Visit Provider Internal Medicine
DX: C61 Malignant neoplasm of prostate (principal)
CPT/HCPCS: 36415; 80053; 84153; 84403; 85025

== ENCOUNTER 2019-12-22 02:41 | Outpatient (CLI) | payer BC, MEDICARE, SELFPAY ==
[2019-12-22 09:53] LABS: Abs Immature Grans 0.01 10^3/uL (0.0-0.06); Absolute Basophil Count 0.04 10^3/uL (0.0-0.2); Absolute Eosinophil Count 0.11 10^3/uL (0.0-0.7); Absolute Lymphocyte Count 2.46 10^3/uL (1.2-3.4); Absolute Neutrophil Count 3.43 10^3/uL (1.2-6.7); Basophils % 0.6; Eosinophils % 1.6; HCT 44.5 % (40.0-50.0); HGB 14.6 g/dL (13.5-17.5); Immature Grans % 0.1; Lymphocytes % 36.4; MCH 32.7 pg (27.0-33.0); MCHC 32.8 % (32.0-36.0); MCV 99.8 fL (80-95); MPV 10.2 fL (8.0-11.0); Monocytes % 10.4; Neutrophils % 50.9; Nucleated RBC 0 %; Platelet Count 267 10^3/uL (130-400); RBC 4.46 10^6/uL (4.36-5.78); RDW 12.9 % (11.8-14.1); RDW-SD 47.8 fL; WBC 6.75 10^3/uL (4.4-10.8)
[2019-12-22 10:04] LABS: ALT 27 U/L (16-63); AST 17 U/L (15-37); Albumin 3.4 g/dL (3.4-5.0); Alkaline Phosphatase 102 U/L (46-116); Anion Gap 8.6 mmol/L (3-11); BUN 19 mg/dL (7-18); Bilirubin, Total 0.6 mg/dL (0.2-1.0); CO2 27.4 mmol/L (21.0-32.0); CREATININE 1.14 mg/dL (0.70-1.30); Chloride 107 mmol/L (98-107); Glucose 75 mg/dL (74-106); Potassium 4.5 mmol/L (3.5-5.1); Sodium 143 mmol/L (136-145); Total Protein 6.2 g/dL (6.4-8.2)
[2019-12-23 16:00] LABS: PSA, Ultrasensitive 0.08 ng/mL (<= 6.5)
[2019-12-24 23:47] LABS: Testosterone, Total <7.0 ng/dL (240-950)
== END 2019-12-22 03:01 ==
PROVIDERS: PCP Family Medicine; Visit Provider Internal Medicine
DX: C61 Malignant neoplasm of prostate (principal)
CPT/HCPCS: 36415; 80053; 84153; 84403; 85025

== ENCOUNTER 2020-03-14 02:26 | Outpatient (CLI) | payer BC, MEDICARE, SELFPAY ==
[2020-03-14 16:43] LABS: Abs Immature Grans 0.02 10^3/uL (0.0-0.06); Absolute Basophil Count 0.04 10^3/uL (0.0-0.2); Absolute Eosinophil Count 0.02 10^3/uL (0.0-0.7); Absolute Lymphocyte Count 1.89 10^3/uL (1.2-3.4); Absolute Monocyte Count 0.49 10^3/uL (0.1-0.8); Absolute Neutrophil Count 4.72 10^3/uL (1.2-6.7); Basophils % 0.6; Eosinophils % 0.3; HCT 43.4 % (40.0-50.0); HGB 14.7 g/dL (13.5-17.5); Immature Grans % 0.3; Lymphocytes % 26.3; MCH 33.3 pg (27.0-33.0); MCHC 33.9 % (32.0-36.0); MCV 98.2 fL (80-95); MPV 10.6 fL (8.0-11.0); Monocytes % 6.8; Neutrophils % 65.7; Nucleated RBC 0 %; Platelet Count 267 10^3/uL (130-400); RBC 4.42 10^6/uL (4.36-5.78); RDW 12.9 % (11.8-14.1); RDW-SD 46.7 fL; WBC 7.18 10^3/uL (4.4-10.8)
[2020-03-14 18:01] LABS: ALT 26 U/L (16-63); AST 15 U/L (15-37); Albumin 3.7 g/dL (3.4-5.0); Alkaline Phosphatase 107 U/L (46-116); Anion Gap 7.4 mmol/L (3-11); BUN 21 mg/dL (7-18); Bilirubin, Total 0.5 mg/dL (0.2-1.0); CO2 26.6 mmol/L (21.0-32.0); CREATININE 1.09 mg/dL (0.70-1.30); Calcium 8.9 mg/dL (8.5-10.1); Chloride 105 mmol/L (98-107); Glucose 108 mg/dL (74-106); Potassium 4.5 mmol/L (3.5-5.1); Sodium 139 mmol/L (136-145)
[2020-03-16 09:43] LABS: PSA, Ultrasensitive 0.08 ng/mL (<= 6.5)
[2020-03-17 12:51] LABS: Testosterone, Total <7.0 ng/dL (240-950)
== END 2020-03-14 02:46 ==
PROVIDERS: PCP Family Medicine; Visit Provider Internal Medicine
DX: C61 Malignant neoplasm of prostate (principal)
CPT/HCPCS: 36415; 80053; 84153; 84403; 85025

== ENCOUNTER 2020-06-15 02:26 | Outpatient (CLI) | payer MEDICARE, SELFPAY ==
[2020-06-15 11:41] LABS: Abs Immature Grans 0.01 10^3/uL (0.0-0.06); Absolute Basophil Count 0.04 10^3/uL (0.0-0.2); Absolute Eosinophil Count 0.08 10^3/uL (0.0-0.7); Absolute Lymphocyte Count 2.29 10^3/uL (1.2-3.4); Absolute Monocyte Count 0.61 10^3/uL (0.1-0.8); Absolute Neutrophil Count 2.95 10^3/uL (1.2-6.7); Basophils % 0.7; Eosinophils % 1.3; HCT 44.1 % (40.0-50.0); HGB 14.3 g/dL (13.5-17.5); Immature Grans % 0.2; Lymphocytes % 38.3; MCH 32.4 pg (27.0-33.0); MCHC 32.4 % (32.0-36.0); MCV 99.8 fL (80-95); MPV 10.1 fL (8.0-11.0); Monocytes % 10.2; Neutrophils % 49.3; Nucleated RBC 0 %; Platelet Count 251 10^3/uL (130-400); RBC 4.42 10^6/uL (4.36-5.78); RDW 12.8 % (11.8-14.1); RDW-SD 47.3 fL; WBC 5.98 10^3/uL (4.4-10.8)
[2020-06-15 12:25] LABS: ALT 30 U/L (16-63); AST 16 U/L (15-37); Albumin 3.4 g/dL (3.4-5.0); Alkaline Phosphatase 92 U/L (46-116); Anion Gap 7.8 mmol/L (3-11); BUN 18 mg/dL (7-18); Bilirubin, Total 0.6 mg/dL (0.2-1.0); CO2 29.2 mmol/L (21.0-32.0); Chloride 105 mmol/L (98-107); Glucose 97 mg/dL (74-106); Potassium 4.6 mmol/L (3.5-5.1); Sodium 142 mmol/L (136-145); Total Protein 5.9 g/dL (6.4-8.2)
[2020-06-16 16:50] LABS: PSA, Ultrasensitive 0.06 ng/mL (<= 6.5)
[2020-06-23 04:32] LABS: Testosterone, Total <7.0 ng/dL (240-950)
== END 2020-06-15 02:27 | disposition home or self-care (01) ==
LOC: LBO 02:26
PROVIDERS: PCP Family Medicine; Visit Provider Internal Medicine
DX: C61 Malignant neoplasm of prostate (principal)
CPT/HCPCS: 36415; 80053; 84153; 84403; 85025

== ENCOUNTER 2020-08-18 01:34 | Outpatient (CLI) | payer MEDICARE, BC, SELFPAY ==
--- NOTE | 2020-08-18 09:00 | ETT_ITS ---
APPROVED REPORT Exam: Exercise Treadmill Patient Location: Out-Patient Room/Bed: Stress Nurse: Claire Beasley RN Ordering Provider:ALVINO BELL, Contact Number: [phone] BMI: 29.79 Baseline Rhythm: Sinus Rhythm Indications: Exertional dyspnea, palpitations Medical History Medical History: [place], asthma, prostate cancer, palpitations, hyperlipidemia, asthma, erectile dysfunc tion, depression Cardiac Medications: Atrovastatin, aspirin, flovent HFA, ventolin HFA Allergies: Bupropion HCL Cardiac Risk Factors: Hyperlipidemia, asthma, smoker (former), family hx Previous Cardiac Procedures: None Pretest Chest Pain Characteristics: None Exercise History: Physically active Physical Disabilities: None Lung Sounds: Clear to auscultation Heart Sounds: Regular Stress Test Details Test: Exercise stress testing was performed using a Hector protocol. Rest Stress HR Resting HR Supine: 68 bpm Max Heart Rate (APMHR): 149 bpm Resting HR Standin bpm Target HR (85% APMHR): 126 bpm Max HR Achieved: 132 bpm % of APMHR: 88 Recovery HR: 71 bpm HR response to stress: Normal HR response to stress BP Resting BP Supine: 136/78 mmHg Resting BP Standin/80 mmHg Max BP: 180/72 mmHg Recovery BP: 142/74 mmHg BP response to stress: Normal blood pressure response to stress. ECG Resting ECG: Sinus Rhythm Ectopy: None Stress ECG: Sinus Tachycardia ST Change: No significant ST segment changes noted Arrhythmia: None Recovery ECG: Sinus Rhythm Recovery ST Change: No significant ST segment changes noted Recovery Arrhythmia: None Clinical Reason for Termination: Fatigue Stress Symptoms: General Fatigue Exercise duration: 8 min59 sec Highest Stage Reached: Stage 3: 3.4 mph at 14% grade. Exercise capacity: 10.16 METs Merritt Treadmill Score: 8 Rate Pressure Product: [id number] Stress ECG Conclusion 1. The patient exercised for 9 minutes (10 METS). 2. Exercise was stopped due to fatigue. The patient's blood pressure and heart rate augmented approp riately. 3. There is no evidence of ischemia on the ECG portion of the exam. Merritt Treadmill Score is 8 which is Low risk. Stress Test Summary STAGE Time (mins) Speed (mph) Grade (%) HR BP SYMPTOMS METS Supine 68 136/78 Standing 81 132/80 1 3 1.7 10 89 138/76 4.6 2 6 2.5 12 105 154/76 SpO2 98% 7 3 9 3.4 14 132 10.2 1 min recovery 108 180/72 SpO2 97% 3 min recovery 71 166/70 6 min recovery 71 142/74
== END 2020-08-18 01:54 ==
PROVIDERS: PCP Family Medicine; Visit Provider Family Medicine
DX: R06.09 Other forms of dyspnea (principal); R00.2 Palpitations; E78.5 Hyperlipidemia, unspecified; J45.909 Unspecified asthma, uncomplicated; Z87.891 Personal history of nicotine dependence; Z82.49 Family history of ischemic heart disease and other diseases of the circulatory system
CPT/HCPCS: 93016; 93018; 93306; 93017

== ENCOUNTER 2020-09-13 02:46 | Outpatient (CLI) | payer MEDICARE, BC, SELFPAY ==
[2020-09-13 11:58] LABS: Abs Immature Grans 0.01 10^3/uL (0.0-0.06); Absolute Basophil Count 0.05 10^3/uL (0.0-0.2); Absolute Eosinophil Count 0.12 10^3/uL (0.0-0.7); Absolute Lymphocyte Count 2.39 10^3/uL (1.2-3.4); Absolute Monocyte Count 0.72 10^3/uL (0.1-0.8); Absolute Neutrophil Count 2.77 10^3/uL (1.2-6.7); Basophils % 0.8; HCT 45.1 % (40.0-50.0); HGB 15.1 g/dL (13.5-17.5); Immature Grans % 0.2; Lymphocytes % 39.4; MCH 33.3 pg (27.0-33.0); MCHC 33.5 % (32.0-36.0); MCV 99.3 fL (80-95); MPV 10.1 fL (8.0-11.0); Monocytes % 11.9; Neutrophils % 45.7; Nucleated RBC 0 %; Platelet Count 255 10^3/uL (130-400); RBC 4.54 10^6/uL (4.36-5.78); RDW 12.9 % (11.8-14.1); RDW-SD 47.3 fL; WBC 6.06 10^3/uL (4.4-10.8)
[2020-09-13 12:39] LABS: ALT 36 U/L (16-63); AST 18 U/L (15-37); Albumin 3.6 g/dL (3.4-5.0); Alkaline Phosphatase 94 U/L (46-116); Anion Gap 5.7 mmol/L (3-11); BUN 19 mg/dL (7-18); Bilirubin, Total 0.9 mg/dL (0.2-1.0); CO2 31.3 mmol/L (21.0-32.0); CREATININE 1.1 mg/dL (0.70-1.30); Calcium 9.2 mg/dL (8.5-10.1); Chloride 105 mmol/L (98-107); Glucose 106 mg/dL (74-106); Potassium 4.8 mmol/L (3.5-5.1); Sodium 142 mmol/L (136-145); Total Protein 6.3 g/dL (6.4-8.2)
[2020-09-14 12:11] LABS: PSA, Ultrasensitive 0.05 ng/mL (<= 6.5)
[2020-09-16 08:40] LABS: Testosterone, Total <7.0 ng/dL (240-950)
== END 2020-09-13 02:47 | disposition home or self-care (01) ==
LOC: LBO 02:46
PROVIDERS: PCP Family Medicine; Visit Provider Internal Medicine
DX: C61 Malignant neoplasm of prostate (principal)
CPT/HCPCS: 36415; 80053; 84153; 84403; 85025

== ENCOUNTER 2020-12-21 00:53 | Outpatient (CLI) | payer MEDICARE, BC, SELFPAY ==
[2020-12-21 09:20] LABS: Abs Immature Grans 0.01 10^3/uL (0.0-0.06); Absolute Basophil Count 0.06 10^3/uL (0.0-0.2); Absolute Eosinophil Count 0.15 10^3/uL (0.0-0.7); Absolute Lymphocyte Count 3.16 10^3/uL (1.2-3.4); Absolute Monocyte Count 0.74 10^3/uL (0.1-0.8); Absolute Neutrophil Count 4.42 10^3/uL (1.2-6.7); Basophils % 0.7; Eosinophils % 1.8; HCT 43.3 % (40.0-50.0); HGB 14.2 g/dL (13.5-17.5); Immature Grans % 0.1; MCH 32.3 pg (27.0-33.0); MCHC 32.8 % (32.0-36.0); MCV 98.6 fL (80-95); MPV 10.3 fL (8.0-11.0); Monocytes % 8.7; Neutrophils % 51.7; Nucleated RBC 0 %; Platelet Count 276 10^3/uL (130-400); RBC 4.39 10^6/uL (4.36-5.78); RDW 12.9 % (11.8-14.1); RDW-SD 46.7 fL; WBC 8.54 10^3/uL (4.4-10.8)
[2020-12-21 09:43] LABS: ALT 27 U/L (16-63); AST 17 U/L (15-37); Albumin 3.3 g/dL (3.4-5.0); Alkaline Phosphatase 96 U/L (46-116); BUN 14 mg/dL (7-18); Bilirubin, Total 0.5 mg/dL (0.2-1.0); Calcium 8.8 mg/dL (8.5-10.1); Chloride 107 mmol/L (98-107); Glucose 95 mg/dL (74-106); Potassium 4.4 mmol/L (3.5-5.1); Sodium 142 mmol/L (136-145); Total Protein 6.2 g/dL (6.4-8.2)
[2020-12-22 13:23] LABS: PSA, Ultrasensitive 0.04 ng/mL (<= 6.5)
[2020-12-23 17:11] LABS: Testosterone, Total <7.0 ng/dL (240-950)
== END 2020-12-21 00:54 | disposition home or self-care (01) ==
PROVIDERS: PCP Family Medicine; Visit Provider Internal Medicine
DX: C61 Malignant neoplasm of prostate (principal)
CPT/HCPCS: 36415; 80053; 84153; 84403; 85025

== ENCOUNTER 2021-03-22 03:05 | Outpatient (CLI) | payer MEDICARE, BC, SELFPAY ==
[2021-03-22 09:34] LABS: Abs Immature Grans 0.02 10^3/uL (0.0-0.06); Absolute Basophil Count 0.07 10^3/uL (0.0-0.2); Absolute Eosinophil Count 0.11 10^3/uL (0.0-0.7); Absolute Lymphocyte Count 2.34 10^3/uL (1.2-3.4); Absolute Monocyte Count 0.77 10^3/uL (0.1-0.8); Absolute Neutrophil Count 3.96 10^3/uL (1.2-6.7); Eosinophils % 1.5; HCT 43.2 % (40.0-50.0); HGB 14.3 g/dL (13.5-17.5); Immature Grans % 0.3; Lymphocytes % 32.2; MCH 32.9 pg (27.0-33.0); MCHC 33.1 % (32.0-36.0); MCV 99.3 fL (80-95); Monocytes % 10.6; Neutrophils % 54.4; Nucleated RBC 0 %; Platelet Count 264 10^3/uL (130-400); RBC 4.35 10^6/uL (4.36-5.78); RDW 12.8 % (11.8-14.1); RDW-SD 47.2 fL; WBC 7.27 10^3/uL (4.4-10.8)
[2021-03-22 09:53] LABS: ALT 23 U/L (16-63); AST 14 U/L (15-37); Albumin 3.4 g/dL (3.4-5.0); Alkaline Phosphatase 87 U/L (46-116); Anion Gap 5.2 mmol/L (3-11); BUN 14 mg/dL (7-18); Bilirubin, Total 0.5 mg/dL (0.2-1.0); CO2 28.8 mmol/L (21.0-32.0); CREATININE 0.9 mg/dL (0.70-1.30); Calcium 8.8 mg/dL (8.5-10.1); Chloride 106 mmol/L (98-107); Glucose 97 mg/dL (74-106); Sodium 140 mmol/L (136-145); Total Protein 6.3 g/dL (6.4-8.2)
[2021-03-23 20:30] LABS: PSA, Ultrasensitive 0.04 ng/mL (<= 6.5)
[2021-03-25 15:44] LABS: Testosterone, Total <7.0 ng/dL (240-950)
== END 2021-03-22 03:06 | disposition home or self-care (01) ==
LOC: LBO 03:05
PROVIDERS: PCP Family Medicine; Visit Provider Internal Medicine
DX: C61 Malignant neoplasm of prostate (principal)
CPT/HCPCS: 36415; 80053; 84153; 84403; 85025

== ENCOUNTER 2021-04-17 13:37 | Outpatient (REF) | payer MEDICARE, BC, SELFPAY ==
--- NOTE | 2021-04-17 11:50 | SKI_PTH ---
PATIENT: Cuauhtemoc Avalos LOC: [facility] U#:[id number] AGE/SX: 70/M ROOM: RE04/17/[address]: Torres Fischer : 1950 BED: DIS: 04/17/2021 SPEC #: [id number] RECD: 04/17/21 17:24 STATUS: DIDI [facility] #: [id number] FANI: 04/17/21 11:[address]: Torres Fischer DEPT: Surgical Specimen RECD BY: Chen Miranda ENTERED: 04/17/21 17:24 SP TYPE: ADENIKE KAY DR: Zelalem Vital Tissues: 1 - SKIN BIOPSY(SHAVE/PUNCH) Procedures: SKIN LEVEL 4 Comments: [id number]
== END 2021-04-17 13:38 | disposition home or self-care (01) ==
LOC: NCHCN 13:37
PROVIDERS: PCP Family Medicine; Visit Provider Family Medicine
DX: C44.629 Squamous cell carcinoma of skin of left upper limb, including shoulder (principal)
CPT/HCPCS: 88305

== ENCOUNTER 2021-06-23 03:47 | Outpatient (CLI) | payer MEDICARE, BC, SELFPAY ==
[2021-06-23 11:14] LABS: Abs Immature Grans 0.02 10^3/uL (0.0-0.06); Absolute Basophil Count 0.04 10^3/uL (0.0-0.2); Absolute Eosinophil Count 0.06 10^3/uL (0.0-0.7); Absolute Lymphocyte Count 2.32 10^3/uL (1.2-3.4); Absolute Monocyte Count 0.82 10^3/uL (0.1-0.8); Absolute Neutrophil Count 4.63 10^3/uL (1.2-6.7); Basophils % 0.5; Eosinophils % 0.8; HCT 44.3 % (40.0-50.0); HGB 14.8 g/dL (13.5-17.5); Immature Grans % 0.3; Lymphocytes % 29.4; MCH 32.5 pg (27.0-33.0); MCHC 33.4 % (32.0-36.0); MCV 97.1 fL (80-95); MPV 10.1 fL (8.0-11.0); Monocytes % 10.4; Neutrophils % 58.6; Nucleated RBC 0 %; Platelet Count 278 10^3/uL (130-400); RBC 4.56 10^6/uL (4.36-5.78); RDW 12.7 % (11.8-14.1); RDW-SD 45.2 fL; WBC 7.89 10^3/uL (4.4-10.8)
[2021-06-23 11:53] LABS: ALT 27 U/L (16-63); AST 17 U/L (15-37); Albumin 3.6 g/dL (3.4-5.0); Alkaline Phosphatase 98 U/L (46-116); BUN 17 mg/dL (7-18); Bilirubin, Total 0.8 mg/dL (0.2-1.0); CREATININE 0.9 mg/dL (0.70-1.30); Calcium 9.1 mg/dL (8.5-10.1); Chloride 103 mmol/L (98-107); Glucose 104 mg/dL (74-106); Potassium 4.5 mmol/L (3.5-5.1); Sodium 138 mmol/L (136-145); Total Protein 6.3 g/dL (6.4-8.2)
[2021-06-24 13:58] LABS: PSA, Ultrasensitive 0.04 ng/mL (<= 6.5)
[2021-06-27 16:27] LABS: Testosterone, Total <7.0 ng/dL (240-950)
== END 2021-06-23 03:48 | disposition home or self-care (01) ==
LOC: LBO 03:47
PROVIDERS: PCP Family Medicine; Visit Provider Internal Medicine
DX: C61 Malignant neoplasm of prostate (principal)
CPT/HCPCS: 36415; 80053; 84153; 84403; 85025

== ENCOUNTER 2021-09-26 02:32 | Outpatient (CLI) | payer BC, MEDICARE, SELFPAY ==
[2021-09-26 07:21] LABS: Abs Immature Grans 0.03 10^3/uL (0.0-0.06); Absolute Basophil Count 0.06 10^3/uL (0.0-0.2); Absolute Eosinophil Count 0.13 10^3/uL (0.0-0.7); Absolute Lymphocyte Count 2.84 10^3/uL (1.2-3.4); Absolute Monocyte Count 0.93 10^3/uL (0.1-0.8); Basophils % 0.7; Eosinophils % 1.4; HCT 41.6 % (40.0-50.0); HGB 13.9 g/dL (13.5-17.5); Immature Grans % 0.3; Lymphocytes % 30.9; MCH 32.7 pg (27.0-33.0); MCHC 33.4 % (32.0-36.0); MCV 98 fL (80-95); Monocytes % 10.1; Neutrophils % 56.6; Platelet Count 273 10^3/uL (130-400); RBC 4.25 10^6/uL (4.36-5.78); RDW 12.9 % (11.8-14.1); RDW-SD 46.1 fL; WBC 9.19 10^3/uL (4.4-10.8)
[2021-09-26 07:37] LABS: ALT 27 U/L (16-63); AST 17 U/L (15-37); Albumin 3.2 g/dL (3.4-5.0); Alkaline Phosphatase 100 U/L (46-116); Anion Gap 7.3 mmol/L (3-11); BUN 20 mg/dL (7-18); Bilirubin, Total 0.6 mg/dL (0.2-1.0); CO2 26.7 mmol/L (21.0-32.0); CREATININE 0.9 mg/dL (0.70-1.30); Calcium 8.7 mg/dL (8.5-10.1); Chloride 105 mmol/L (98-107); Glucose 99 mg/dL (74-106); Potassium 3.9 mmol/L (3.5-5.1); Sodium 139 mmol/L (136-145)
[2021-09-27 17:39] LABS: PSA, Ultrasensitive 0.04 ng/mL (<= 6.5)
[2021-09-30 15:00] LABS: Testosterone, Total <7.0 ng/dL (240-950)
== END 2021-09-26 02:33 | disposition home or self-care (01) ==
LOC: LBO 02:32
PROVIDERS: Nurse Practitioner Adult Health; PCP Family Medicine; Visit Provider Internal Medicine
DX: C61 Malignant neoplasm of prostate (principal); Z79.818 Long term (current) use of other agents affecting estrogen receptors and estrogen levels
CPT/HCPCS: 36415; 80053; 84153; 84403; 85025

== ENCOUNTER 2021-12-21 03:54 | Outpatient (CLI) | payer BC, MEDICARE, SELFPAY ==
[2021-12-21 12:25] LABS: Abs Immature Grans 0.02 10^3/uL (0.0-0.06); Absolute Basophil Count 0.05 10^3/uL (0.0-0.2); Absolute Eosinophil Count 0.18 10^3/uL (0.0-0.7); Absolute Lymphocyte Count 1.29 10^3/uL (1.2-3.4); Absolute Monocyte Count 0.94 10^3/uL (0.1-0.8); Absolute Neutrophil Count 3.85 10^3/uL (1.2-6.7); Basophils % 0.8; Eosinophils % 2.8; HGB 13.8 g/dL (13.5-17.5); Immature Grans % 0.3; Lymphocytes % 20.4; MCH 33.1 pg (27.0-33.0); MCHC 33.7 % (32.0-36.0); MCV 98 fL (80-95); MPV 10.1 fL (8.0-11.0); Monocytes % 14.8; Neutrophils % 60.9; Platelet Count 263 10^3/uL (130-400); RBC 4.17 10^6/uL (4.36-5.78); RDW 12.6 % (11.8-14.1); RDW-SD 45.7 fL; WBC 6.33 10^3/uL (4.4-10.8)
[2021-12-21 13:31] LABS: ALT 32 U/L (16-63); AST 22 U/L (15-37); Albumin 3.1 g/dL (3.4-5.0); Alkaline Phosphatase 103 U/L (46-116); Anion Gap 7.9 mmol/L (3-11); BUN 20 mg/dL (7-18); Bilirubin, Total 0.4 mg/dL (0.2-1.0); CO2 28.1 mmol/L (21.0-32.0); Calcium 8.8 mg/dL (8.5-10.1); Chloride 105 mmol/L (98-107); Estimated GFR 79.47 (mL/min/1.73m2); Glucose 114 mg/dL (74-106); Potassium 3.9 mmol/L (3.5-5.1); Sodium 141 mmol/L (136-145); Total Protein 6.2 g/dL (6.4-8.2)
[2021-12-22 15:45] LABS: PSA, Ultrasensitive 0.03 ng/mL (<= 6.5)
[2021-12-26 13:08] LABS: Testosterone, Total <7.0 ng/dL (240-950)
== END 2021-12-21 03:55 | disposition home or self-care (01) ==
LOC: LBO 03:54
PROVIDERS: Nurse Practitioner Adult Health; PCP Family Medicine; Visit Provider Internal Medicine
DX: C61 Malignant neoplasm of prostate (principal)
CPT/HCPCS: 36415; 80053; 84153; 84403; 85025

== ENCOUNTER → 2022-01-11 01:39 | Outpatient (CLI) | payer BC, MEDICARE, SELFPAY ==
--- NOTE | 2022-01-11 15:30 | DI.DEXA_ITS ---
Exam(s) XR DEXA BONE DENSITY W/WO GITA EXAM: XR DEXA BONE DENSITY W/WO GITA CLINICAL HISTORY: PROSTATE CA, METS MULTIPLE SITES, C61;ANDROGEN-DEPRIVATION THERAPY, Z79.818 TECHNIQUE: COMPARISON: No exams were available for comparison FINDINGS: Lateral Spine Image: Unremarkable. No compression deformities identified. Left hip: Total T-Score: -0.5 Total Z-Score: 0.3 T- and Z-scores: Within normal limits. Lumbar Spine: Total T-Score: 1.2 Total Z-Score: 2.2 T- and Z-scores: Within normal limits. IMPRESSION: No evidence of osteoporosis.
== END ==
PROVIDERS: PCP Family Medicine; Visit Provider Nurse Practitioner Family
DX: Z13.820 Encounter for screening for osteoporosis (principal); C61 Malignant neoplasm of prostate
CPT/HCPCS: 77080

== ENCOUNTER → 2022-03-16 00:35 | Outpatient (CLI) | payer BC, MEDICARE, SELFPAY ==
--- NOTE | 2022-03-16 | DI.NM_ITS ---
Exam(s) NM BONE SCAN WHOLE BODY GRP EXAM: UT BONE SCAN WHOLE BODY GRP CLINICAL HISTORY: METASTATIC PROSTATE CA,C61,RESTAGING EXAM,ASSESS TREATMENT RESPONSE. TECHNIQUE: Injected Dose: 25 mCi Tc-99m MDP Delayed Images: 2-3 hours. COMPARISON: UT WHOLE BODY BONE SCAN from 09/02/2018 FINDINGS: Whole body nuclear bone scan was performed and compared to the prior study of August 2018. There has been significant improvement. Most of the the previously present multiple and multilevel f oci of increased radiopharmaceutical uptake in the skeleton are no longer evident on the present stud y. There is still some remaining activity in the intertrochanteric region of the left hip Also in the sacrum. Mild focal uptake seen in the posterior aspect of the left 10th rib noted which was an area of more i ntense focal uptake previously. Also mild focal increased uptake in the posterior aspect of the left 7th rib noted which was also significantly more intense on the prior study. Remainder of the rib ca ges appear dramatically improved bilaterally. IMPRESSION: 1. Significant improvement when compared to the prior nuclear bone scan of August 2018. DATA REPOSITORY:
[2022-03-16 08:35] LABS: Abs Immature Grans 0.02 10^3/uL (0.0-0.06); Absolute Basophil Count 0.04 10^3/uL (0.0-0.2); Absolute Eosinophil Count 0.09 10^3/uL (0.0-0.7); Absolute Lymphocyte Count 2.17 10^3/uL (1.2-3.4); Absolute Monocyte Count 0.92 10^3/uL (0.1-0.8); Absolute Neutrophil Count 6.36 10^3/uL (1.2-6.7); Basophils % 0.4; Eosinophils % 0.9; HCT 42.2 % (40.0-50.0); Immature Grans % 0.2; Lymphocytes % 22.6; MCH 32.7 pg (27.0-33.0); MCHC 33.2 % (32.0-36.0); MCV 99 fL (80-95); MPV 9.9 fL (8.0-11.0); Monocytes % 9.6; Neutrophils % 66.3; Platelet Count 265 10^3/uL (130-400); RBC 4.28 10^6/uL (4.36-5.78); RDW-SD 47.1 fL
[2022-03-16] MEDS: Barium Sulfate 2% W/V-Berry Smoothie 450 ML BTL 900 ML PO (08:53)
[2022-03-16 09:06] LABS: ALT 29 U/L (16-63); AST 16 U/L (15-37); Albumin 3.5 g/dL (3.4-5.0); Alkaline Phosphatase 96 U/L (46-116); Anion Gap 6.4 mmol/L (3-11); BUN 19 mg/dL (7-18); Bilirubin, Total 0.7 mg/dL (0.2-1.0); CO2 28.6 mmol/L (21.0-32.0); Calcium 8.6 mg/dL (8.5-10.1); Chloride 104 mmol/L (98-107); Estimated GFR 79.47 (mL/min/1.73m2); Glucose 101 mg/dL (74-106); Potassium 4.2 mmol/L (3.5-5.1); Sodium 139 mmol/L (136-145); Total Protein 6.3 g/dL (6.4-8.2)
--- NOTE | 2022-03-16 10:45 | DI.CT_ITS ---
Exam(s) CT CHEST/ABD/PEL W EXAM: CT CHEST/ABD/PEL W CLINICAL HISTORY: METASTATIC PROSTATE CA,C61,RESTAGING EXAM. TECHNIQUE: Imaging Protocol: Axial computed tomography images with coronal and sagittal reformatted images were created and reviewed CONTRAST MATERIAL: Intravenous: Omnipaque 350 Contrast volume:100 ml Oral: None COMPARISON: CT CT CHEST/ABD/PEL W from 09/02/2018 NM NM BONE SCAN WHOLE BODY GRP from 03/16/2022 FINDINGS: CHEST: LUNGS: No new concerning pulmonary nodules nor pleural effusions. No confluent infiltrates evident. No findings in trachea and mainstem bronchi.. MEDIASTINUM: There is no hilar nor mediastinal adenopathy. No axillary adenopathy. No supraclavicul ar adenopathy. CARDIAC: Heart size is normal. There is no pericardial effusion.Caliber of the thoracic aorta is wit hin normal limits. OSSEOUS: Significant improvement in the previously present extensive osseous metastatic blastic lesio ns.. ABDOMEN: There is no ascites. LIVER: Multiple benign-appearing cysts are again noted in the liver and appear stable. No new obviou s metastatic lesions in the liver. No dilated intrahepatic ducts. GALLBLADDER/BILIARY: No obvious gallbladder pathology. CBD is not dilated. PANCREAS: No evidence of pancreatic mass nor dilatation of the pancreatic duct. SPLEEN: Spleen is not enlarged. There are no intrasplenic lesions. Splenic and portal veins are you nt. ADRENALS: There are no significant adrenal masses. KIDNEYS: Small cyst in the superior pole left kidney again noted as are other small cortical cyst in left kidney and there also tiny punctate calculi again noted in the left kidney. No new significant findings in either kidney. No hydronephrosis.. ABDOMINAL AORTA: Abdominal aorta is not enlarged. LYMPH NODES: There is no retroperitoneal nor paraaortic adenopathy. ABDOMINAL WALL: No evidence of significant anterior abdominal wall nor inguinal hernia. GI: There is no evidence of bowel obstruction. PELVIS: LYMPH NODES: There is no intrapelvic nor inguinal adenopathy. GI: No evidence of appendicitis.No evidence of sigmoid diverticulitis. URINARY BLADDER: No calculi. No new masses. Some uniform thickening of the urinary bladder wall is unchanged from the previous study. REPRODUCTIVE: Prostate gland is not enlarged. There is no obturator adenopathy. No new intrapelvic adenopathy. OSSEOUS: There has been significant improvement in the extensive osseous blastic metastatic disease i n the abdomen and pelvis. Previously present extensive blastic metastases have significantly decreas ed. IMPRESSION: 1. Compared to CT scan of 09/02/2018 there has been dramatic decrease in the amount of blastic osseou s metastatic disease, this commensurate with findings on today's nuclear bone scan. 2. No new intrathoracic findings. No lung nodules nor intrathoracic adenopathy. 3. Multiple benign cysts again noted in the liver. No new solid hepatic lesions. 4. Prostate size is normal. There is no obturator adenopathy. RADIATION DOSE DELIVERED: 1,844.18mGy.cm Total DLP DATA REPOSITORY: All CT scans at this facility are submitted to the National Radiology Data Registry (NRDR) Dose Index Registry (DIR) with the [employer] (A[employer]). RADIATION OPTIMIZATION: All CT scans at this facility use at least one of these dose optimization te chniques: automated exposure control; mA and/or kV adjustment per patient size (includes targeted exa ms where dose is matched to clinical indication); or iterative reconstruction.
[2022-03-16] MEDS: Omnipaque 350 MG/ML 500 ML BTL-Imaging package 100 ML IJ (10:49)
[2022-03-19 09:44] LABS: PSA, Ultrasensitive 0.03 ng/mL (<= 6.5)
[2022-03-21 08:06] LABS: Testosterone, Total <7.0 ng/dL (240-950)
== END ==
PROVIDERS: PCP Family Medicine; Visit Provider Internal Medicine
DX: C61 Malignant neoplasm of prostate (principal); Z12.89 Encounter for screening for malignant neoplasm of other sites; K76.89 Other specified diseases of liver; N28.1 Cyst of kidney, acquired; C79.51 Secondary malignant neoplasm of bone
CPT/HCPCS: 74177; 78306; 80053; 84153; 84403; 71260; 85025

== ENCOUNTER 2022-03-16 19:30 | Outpatient (REF) | payer BC, MEDICARE, SELFPAY ==
[2022-03-16 19:56] LABS: Calculated LDL 70 mg/dL (<100); Cholesterol 170 mg/dL (<200); HDL Cholesterol 82 mg/dL (40-60); Triglyceride 94 mg/dL (<150); Vitamin B12 571 pg/mL (193-986)
[2022-03-19 10:21] LABS: Hepatitis C Ab w Rflx HCV PCR Negative (Negative)
== END 2022-03-16 19:31 | disposition home or self-care (01) ==
LOC: NCHCN 19:30
PROVIDERS: PCP Family Medicine; Visit Provider Family Medicine
DX: D75.89 Other specified diseases of blood and blood-forming organs (principal); Z00.00 Encounter for general adult medical examination without abnormal findings; Z11.59 Encounter for screening for other viral diseases; E78.5 Hyperlipidemia, unspecified
CPT/HCPCS: 80061; 86803; 82607

== ENCOUNTER 2022-06-06 02:50 | Outpatient (CLI) | payer BC, MEDICARE, SELFPAY ==
[2022-06-06 12:20] LABS: Abs Immature Grans 0.02 10^3/uL (0.0-0.06); Absolute Basophil Count 0.03 10^3/uL (0.0-0.2); Absolute Eosinophil Count 0.04 10^3/uL (0.0-0.7); Absolute Lymphocyte Count 1.27 10^3/uL (1.2-3.4); Absolute Monocyte Count 0.36 10^3/uL (0.1-0.8); Basophils % 0.5; Eosinophils % 0.6; HCT 42.1 % (40.0-50.0); Immature Grans % 0.3; Lymphocytes % 19.8; MCH 31.9 pg (27.0-33.0); MCHC 33.3 % (32.0-36.0); MCV 96 fL (80-95); MPV 9.7 fL (8.0-11.0); Monocytes % 5.6; Neutrophils % 73.2; Platelet Count 258 10^3/uL (130-400); RBC 4.39 10^6/uL (4.36-5.78); RDW 12.7 % (11.8-14.1); RDW-SD 45.1 fL; WBC 6.42 10^3/uL (4.4-10.8)
[2022-06-06 12:35] LABS: ALT 24 U/L (16-63); AST 14 U/L (15-37); Albumin 3.4 g/dL (3.4-5.0); Alkaline Phosphatase 96 U/L (46-116); Anion Gap 9.2 mmol/L (3-11); BUN 17 mg/dL (7-18); Bilirubin, Total 0.5 mg/dL (0.2-1.0); CO2 26.8 mmol/L (21.0-32.0); CREATININE 1.1 mg/dL (0.70-1.30); Calcium 9.2 mg/dL (8.5-10.1); Chloride 105 mmol/L (98-107); Estimated GFR 70.88 (mL/min/1.73m2); Glucose 113 mg/dL (74-106); Potassium 4.4 mmol/L (3.5-5.1); Sodium 141 mmol/L (136-145); Total Protein 6.4 g/dL (6.4-8.2)
[2022-06-08 10:53] LABS: PSA, Ultrasensitive 0.02 ng/mL (<= 6.5)
[2022-06-11 14:04] LABS: Testosterone, Total <7.0 ng/dL (240-950)
== END 2022-06-06 02:51 | disposition home or self-care (01) ==
PROVIDERS: PCP Family Medicine; Visit Provider Internal Medicine
DX: C61 Malignant neoplasm of prostate (principal)
CPT/HCPCS: 36415; 80053; 84153; 84403; 85025

== ENCOUNTER 2022-06-29 09:29 | Outpatient (CLI) | payer BC, MEDICARE, SELFPAY | END 2022-06-29 09:30 | disposition home or self-care (01) | PROVIDERS: PCP Family Medicine; Visit Provider Family Medicine | DX: R00.2 Palpitations (principal) | CPT/HCPCS: 93270 ==

== ENCOUNTER 2022-07-23 08:57 | Outpatient (CLI) | payer BC, MEDICARE, SELFPAY ==
--- NOTE | 2022-07-23 09:14 | W.CARDEVENT ---
Date of service: 07/23/22 Time of Service: 09:14 Cardiac Event Recorder Referring Provider:: Torres Fischer Indications:: Palpitations Cardiac Event Note: This is a cardiac event recorder ordered for palpitations Patient was monitored for a total period of 5 days and 11 hours Rhythm throughout was sinus with an average heart rate of 75. Minimum was 57, maximum 116 Several atrial premature beats were recorded No patient symptoms were documented
== END 2022-07-23 08:58 | disposition home or self-care (01) ==
LOC: CARDOPNVT 08:57
PROVIDERS: PCP Family Medicine; Visit Provider Internal Medicine Cardiovascular Disease
DX: R00.2 Palpitations (principal); I49.1 Atrial premature depolarization

== ENCOUNTER 2022-08-31 02:22 | Outpatient (CLI) | payer BC, MEDICARE, SELFPAY ==
[2022-08-31 13:16] LABS: Abs Immature Grans 0.02 10^3/uL (0.0-0.06); Absolute Basophil Count 0.05 10^3/uL (0.0-0.2); Absolute Eosinophil Count 0.09 10^3/uL (0.0-0.7); Absolute Lymphocyte Count 2.55 10^3/uL (1.2-3.4); Absolute Monocyte Count 0.69 10^3/uL (0.1-0.8); Absolute Neutrophil Count 3.61 10^3/uL (1.2-6.7); Basophils % 0.7; Eosinophils % 1.3; HCT 41.6 % (40.0-50.0); HGB 14.2 g/dL (13.5-17.5); Immature Grans % 0.3; Lymphocytes % 36.4; MCH 32.8 pg (27.0-33.0); MCHC 34.1 % (32.0-36.0); MCV 96 fL (80-95); MPV 9.8 fL (8.0-11.0); Monocytes % 9.8; Neutrophils % 51.5; Platelet Count 254 10^3/uL (130-400); RBC 4.33 10^6/uL (4.36-5.78); RDW 12.8 % (11.8-14.1); WBC 7.01 10^3/uL (4.4-10.8)
[2022-08-31 14:09] LABS: ALT 31 U/L (16-63); AST 18 U/L (15-37); Albumin 3.3 g/dL (3.4-5.0); Alkaline Phosphatase 87 U/L (46-116); Anion Gap 6.7 mmol/L (3-11); BUN 20 mg/dL (7-18); Bilirubin, Total 0.5 mg/dL (0.2-1.0); CO2 27.3 mmol/L (21.0-32.0); CREATININE 1.2 mg/dL (0.70-1.30); Calcium 8.6 mg/dL (8.5-10.1); Chloride 106 mmol/L (98-107); Estimated GFR 63.85 (mL/min/1.73m2); Glucose 98 mg/dL (74-106); Potassium 3.9 mmol/L (3.5-5.1); Sodium 140 mmol/L (136-145); Total Protein 6.2 g/dL (6.4-8.2)
[2022-09-03 12:03] LABS: PSA, Ultrasensitive 0.02 ng/mL (<= 6.5)
[2022-09-04 15:10] LABS: Testosterone, Total <7.0 ng/dL (240-950)
== END 2022-08-31 02:23 | disposition home or self-care (01) ==
PROVIDERS: Referring Provider Internal Medicine; Visit Provider Internal Medicine
DX: C61 Malignant neoplasm of prostate (principal)
CPT/HCPCS: 36415; 80053; 84153; 84403; 85025

== ENCOUNTER 2022-09-27 07:39 | Day surgery (SDC) | payer BC, MEDICARE, SELFPAY ==
--- NOTE | 2022-09-26 19:51 | W.PM.DSUDISC ---
Date of service: 09/27/22 Time of Service: 09:29 Discharge Plan Disposition Patient Disposition: Home Condition: Good Discharge Details Reason For Visit: Screening colonoscopy Attending Provider: Niko Aburto Primary Care Provider: Torres Fischer Home Meds and New Rx's Prescriptions: Continued multivitamin capsule 1 cap PO DAILY aripiprazole [Abilify] 5 mg tablet 5 mg PO QHS cholecalciferol (vitamin D3) 25 mcg (1,000 unit) capsule 25 mcg PO DAILY calcium carbonate [Calcium 600] 600 mg calcium (1,500 mg) tablet 600 mg PO DAILY fluoxetine [Prozac] 10 mg capsule 80 mg PO DAILY abiraterone 250 mg tablet 1,000 mg PO DAILY Rx Instructions: must be taken on empty stomach, at least 1 hr before or 2 hrs after a meal/food prednisone 5 mg tablet 5 mg PO DAILY albuterol sulfate [Ventolin HFA] 90 mcg/actuation HFA aerosol inhaler 2 puff inhalation 6XD atorvastatin 20 mg tablet 20 mg PO QHS fluticasone propionate [Flovent HFA] 220 mcg/actuation HFA aerosol inhaler 1 puff inhalation BID Lupron Depot (3 month) 22.5 mg syringe kit 22.5 mg IM [id number] Patient Comments: pt states early August, last dose sildenafil 50 mg tablet 50 mg PO DAILY PRN Patient Comments: Take 1-2 tablet by mouth once a day as needed take 1 hour prior to sexual activity trazodone 150 mg tablet 150 mg PO HS PRN Patient Comments: TAKE 1/2 TO 1 (ONE-HALF TO ONE) TABLET BY MOUTH AT NIGHT NEEDED FOR INSOMNIA Discontinued polyethylene glycol 3350 17 gram/dose powder 17 g PO ONCE Qty: 238 0RF Rx Instructions: Take per colonoscopy instructions provided by ordering providers office bisacodyl [Dulcolax (bisacodyl)] 5 mg tablet,delayed release (DR/EC) 5 mg PO ONCE Qty: 4 0RF Rx Instructions: Take per colonoscopy instructions provided by ordering providers office Discharge Instructions Additional Instructions: Elaine, we were able to complete your colonoscopy today without any problems. The quality of your prep was outstanding. I did not see any signs of polyps anywhere within the large intestine. Based on your history of adenomatous polyps, and a negative screening colonoscopy today, my recommendation is to consider another colonoscopy in 10 years. However, you should know, that there is debate about the utility of screening colonoscopies as patients approach and past age 85. In that regard, I would encourage you to discuss this with your primary care physician in the context of your overall health. Certainly, if you feel to be in good shape, and feel up for another colonoscopy in 10 years, I be happy to provide that service. 1. If tolerated, consume a soft, low fiber diet for 1-2 days. 2[address] Do not drive, drink alcohol, operate machinery, make critical decisions, or do activities that require coordination or balance for 24 hours. 3. Because air was put into your colon during the procedure, expelling air from your rectum (passing gas or farting) is normal. 4. You may not have a bowel movement for 1-3 days because of the colonoscopy prep. This is normal. 5. Go directly to the emergency room if you notice any of the following: Develop chills (warm to touch), or if you have a thermometer and your temperature is above 101 Difficulty breathing or difficultly swallowing Persistent vomiting Severe abdominal pain, other than gas cramps Severe chest pain Black, tarry stools Any bleeding ? exceeding one tablespoon 6. Call your physician if the site where your intravenous was started becomes red, swollen, painful, and warm to touch. 7. Your physician has reviewed your pre-procedure medications. Please continue to take those medications as previously ordered. You will be given specific information/education regarding any changes to your medications before leaving. Activity:: Activity as Tolerated Diet:: As Tolerated Discharge Orders Discharge Orders: Discharge Order (Routine); Ordered 09/26/22 Ordered By: Niko Aburto DS: Diagnosis Discharge Diagnosis (1) Screen for colon cancer: Status: Acute Asessment and Plan: Negative screening colonoscopy
--- NOTE | 2022-09-26 19:53 | W.COLOREPORT ---
Date of service: 09/27/22 Time of Service: 09:31 Colonoscopy Report Date of procedure: 09/27/22 Pre-op diagnosis general: Screening colonoscopy Post-op diagnosis procedure note: other (Negative screening colonoscopy) Procedure: Colonoscopy Surgeon: Niko Aburto Anesthesia Type: General:No Airway Estimated blood loss (mL): 0 Pathology: none sent Complications: None Disposition: same day Indications: Frantz is a 72 year old male with a history of adenomatous polyps who is here for his next screening colonoscopy Prep: Miralax/Dulcolax Procedure Start Time: :07 Procedure End Time: 09:17 Retraction Time: 6 Findings: Negative screening colonoscopy Procedure Description: After the induction of monitored anesthetic care, and with the patient in left lateral decubitus position, I began by performing an external anorectal exam.? Perineum and skin were normal, as was the anal verge.? There was no evidence of external hemorrhoids.? Next, I performed a digital rectal exam.? I did not appreciate any abnormal findings.? Next, I advanced a colonoscope into the rectal vault.? I performed retroflexion.? This appeared normal.? Using insufflation, I then advanced the colonoscope beyond the rectal folds and into the sigmoid colon before advancing towards the cecum.? The quality of the prep was outstanding.? The scope was noted to be in the cecum by identification of the ileocecal valve and appendiceal orifice.? I then began withdrawing the colonoscope using repeated irrigation as necessary for full evaluation of the colonic mucosa. ?Once the scope was withdrawn to the level of the rectum, great care was taken to examine portions of the rectal folds.? Along the length of the colon, I did not see any signs of tumors or polyps. Finally, the scope was withdrawn and the patient was brought to the same-day surgery recovery unit as the anesthetic wore off. ?The findings and instructions were shared with the patient prior to discharge.
--- NOTE | 2022-09-27 06:46 | W.ANESPRE ---
General Info Date of Service Date Performed: 09/27/22 Height: 5 ft 8 in Weight: 87.997 kg Body Mass Index (BMI): 29.5 Surgical Procedure: Operation Date: 09/27/22 08:50 Proposed Procedure Side Surgeon randall Aburto MD Meds Allergies and Home Medications Allergies Allergy/AdvReac Type Severity Reaction Status Date / Time erythromycin AdvReac Intermediate GI issues Uncoded 09/27/22 08:18 Home Medication Medication Instructions Recorded multivitamin 1 cap PO DAILY 01/30/18 abiraterone 250 mg tablet 1,000 mg PO DAILY 10/12/21 albuterol sulfate 90 mcg/actuation 2 puff inhalation 6XD 10/12/21 aerosol inhaler (Ventolin HFA) fluoxetine 10 mg capsule (Prozac) 80 mg PO DAILY 10/12/21 prednisone 5 mg tablet 5 mg PO DAILY 10/12/21 calcium carbonate 600 mg calcium 600 mg PO DAILY 10/18/21 (1,500 mg) tablet (Calcium) cholecalciferol (vitamin D3) 25 25 mcg PO DAILY 10/18/21 mcg (1,000 unit) capsule atorvastatin 20 mg tablet 20 mg PO QHS 02/13/22 fluticasone propionate 220 1 puff inhalation BID 02/13/22 mcg/actuation HFA aerosol inhaler (Flovent HFA) leuprolide (3 month) 22.5 mg (3 22.5 mg IM [id number] 02/13/22 month) intramuscular syringe kit (Lupron Depot) aripiprazole 5 mg tablet (Abilify) 5 mg PO QHS 09/13/22 sildenafil 50 mg tablet 50 mg PO DAILY PRN 09/27/22 trazodone 150 mg tablet 150 mg PO HS PRN 09/27/22 Current Visit Medications: Current Medications Generic Name Dose Route Start Last Admin Trade Name Freq PRN Reason Stop Dose Admin Hyoscyamine Sulfate 0.125 mg 09/26/22 19:55 Hyoscyamine 0.125 Mg Sl/Oral/Chew SL 10/26/22 19:54 DIRECTED PRN Ringer's Solution 1,000 mls @ 80 mls/hr 09/27/22 06:00 IV 10/26/22 23:59 INFUSION [facility] IV Miscellaneous Supplies 1 each 09/27/22 06:00 Iv Access IV 10/26/22 23:59 DIRECTED [facility] Ondansetron HCl 4 mg 09/26/22 19:55 Ondansetron 4 Mg/2 Ml Vial IVP 10/26/22 19:54 Q4H PRN PRN Nausea / Vomiting Sodium Chloride 0 ml 09/27/22 06:00 Normal Saline Flush 10 Ml Syr IV 10/26/22 23:59 PRN PRN Sodium Chloride 0 ml 09/27/22 06:00 Normal Saline 10 Ml Vial IJ 10/26/22 23:59 DIRECTED PRN Sterile Water 0 ml 09/27/22 06:00 Water,Injection,Sterile 10 Ml Vial IJ 10/26/22 23:59 DIRECTED PRN PFSH Active Problems Active Problems: Problem Status Onset Code Screen for colon cancer Z12.11 Vomiting R11.10 Asymmetrical sensorineural hearing loss H90.3 Medical History Medical History (Updated 09/27/22 @ 08:25 by Megan Melendez) Actinic keratosis Adenocarcinoma of prostate Adenomatous colon polyp Adult ADHD Asthma ED (erectile dysfunction) GERD (gastroesophageal reflux disease) H/O squamous cell carcinoma of skin Arm Hearing impairment Hyperlipidemia, unspecified Major depressive disorder, recurrent, in full remission Melanoma of trunk Moderate persistent asthma, uncomplicated Penis disorder Personal history of malignant melanoma of skin Tinnitus, bilateral Surgical History Surgical History History of tonsillectomy and adenoidectomy Hx of colonoscopy Tobacco Smoking/Tobacco Use Status: Former Tobacco Use Alcohol Alcohol Intake: current Alcohol intake frequency: 0-2 drinks per day Alcohol type: beer Substance Use Substance use: Occasionally Substance use type: marijuana Vital Signs and Lab Results Lab Results Blood Type / Crossmatch: No Data to Display Complete Blood Count: White Blood Count 7.01 10^3/uL (4.4-10.8) 08/31/22 13:10 Red Blood Count 4.33 10^6/uL (4.36-5.78) L 08/31/22 13:10 Hemoglobin 14.2 g/dL (13.5-17.5) 08/31/22 13:10 Hematocrit 41.6 % (40.0-50.0) 08/31/22 13:10 Platelet Count 254 10^3/uL (130-400) 08/31/22 13:10 Complete Metabolic Panel: Sodium 140 mmol/L (136-145) 08/31/22 13:10 Potassium 3.9 mmol/L (3.5-5.1) 08/31/22 13:10 Chloride 106 mmol/L (98-107) 08/31/22 13:10 Carbon Dioxide 27.3 mmol/L (21.0-32.0) 08/31/22 13:10 BUN 20 mg/dL (7-18) H 08/31/22 13:10 Creatinine 1.2 mg/dL (0.70-1.30) 08/31/22 13:10 Est GFR (CKD-EPI 2020) 63.85 (mL/min/1.73m2) 08/31/22 13:10 Calcium 8.6 mg/dL (8.5-10.1) 08/31/22 13:10 Albumin 3.3 g/dL (3.4-5.0) L 08/31/22 13:10 Glucose 98 mg/dL (74-106) 08/31/22 13:10 Liver Function Panel: Alanine Aminotransferase (ALT/SGPT) 31 U/L (16-63) 08/31/22 13:10 Aspartate Amino Transf (AST/SGOT) 18 U/L (15-37) 08/31/22 13:10 Coagulation Panel: No Data to Display Cardiac Panel: No Data to Display Arterial Blood Gas: No Data to Display Venous Blood Gas: No Data to Display Pancreas Panel: No Data to Display Thyroid Panel: No Data to Display Infectious Disease: No Data to Display Blood Cultures: No Data to Display Toxicology Panel: No Data to Display Imaging and Studies Imaging and Studies Study information below may be from another EMR and interpreted by another provider. Please see original notes in EMR for more complete details. Other Study Summary:: CARDIAC EVENT RECORDER REPORT PATIENT NAME: Cuauhtemoc Avalos #: [id number] ORDERING PROVIDER: PRIMARY CARE PROVIDER:VAMSI FISCHER MD DATE/TIME OF SERVICE: 07/23/22 : 1950 Date of service: 07/23/22 Time of Service: 09:14 Cardiac Event Recorder Referring Provider:: Vamsi Fischer Indications:: Palpitations Cardiac Event Note: This is a cardiac event recorder ordered for palpitations Patient was monitored for a total period of 5 days and 11 hours Rhythm throughout was sinus with an average heart rate of 75. Minimum was 57, maximum 116 Several atrial premature beats were recorded No patient symptoms were documented Anesthesia Assessment and Plan Anesthesia History Personal History: No History of Anesthesia Complications Family History: No Family History of Anesthesia Complications Exercise Tolerance Exercise Tolerance: Metabolic Equivalents>4 Pertinent Negatives Pertinent Negatives: No Symptoms of GERD, No Major Cardiovascular Symptoms or Complaints and No History of CVA/TIA Cardiac & Pulmonary Exam Cardiac Exam: Normal S1/S2 Heart Sounds Pulmonary Exam: Clear Bilateral Breath Sounds Implantable Cardiac Device Does patient have a Pacemaker or an ICD?: No Airway Exam Known Difficult Airway: No Mallampati Class: 2 Mouth Opening: Normal (> 3cm) Thyromental Distance: Greater than 3 cm Neck Range of Motion: Full ROM Neck Circumference: Normal Teeth Condition: Normal Dentition and Generalized Poor Dentition ASA Classification ASA Score: ASA 2 Emergency Case?: No NPO Status NPO Status: NPO Clears >2 hours, Solids >8 hours Anesthesia Plan Resuscitation Status: Full Code Anesthesia Technique: General Anesthesia Airway Planned: Natural Airway Monitors Used: Standard Monitors
[2022-09-27 08:00] VITALS: BP 110/74; PULSE 73; RESP 16; TEMP 36.4; O2SAT 96
[2022-09-27] MEDS: Lactated Ringers 1,000 ML 80 ML IV (08:20)
[2022-09-27 09:11] VITALS: BMI 29.5
[2022-09-27 09:26] VITALS: BP 108/71; PULSE 65; RESP 16; TEMP 36.4; O2SAT 95
[2022-09-27 09:43] VITALS: BP 123/80; PULSE 64; RESP 15; TEMP 36.5; O2SAT 97
--- NOTE | 2022-09-27 09:45 | W.ANESPOSTOP ---
Postoperative Evaluation Date, Time and Location Date Performed: 09/27/22 Time Performed: 09:45 Patient Location: Day Surgery Unit Vital Signs Most Recent Imported Vital Signs: Most Recent Vital Signs Temp Pulse Resp BP Pulse Ox 36.5 C 64 15 123/80 97 09/27/22 09:43 09/27/22 09:43 09/27/22 09:43 09/27/22 09:43 09/27/22 09:43 Pain Score Most Recent Pain Score: Most Recent Pain Score Pain Level 0 09/27/22 09:43 Assessment Mental Status: Awake (Alert & Oriented to Patient Baseline) Airway and Respiratory Function: Patent airway with normal (patient baseline) respiratory exam Cardiovascular Function: Hemodynamically Stable Hydration Status: Adequately Hydrated Nausea & Vomiting: No Nausea or Vomiting Pain: Pt. Denies Any Pain Peripheral Nerve Block: Patient did not receive a nerve block
== END 2022-09-27 10:23 | disposition home or self-care (01) ==
PROVIDERS: PCP Family Medicine; Visit Provider Surgery
PROC: 0DJD8ZZ Inspection of Lower Intestinal Tract, Via Natural or Artificial Opening Endoscopic (ICD-10-PCS; CPT 45378; principal; 2022-09-27 08:30)
DX: Z12.11 Encounter for screening for malignant neoplasm of colon (principal); Z86.010 Personal history of colon polyps
CPT/HCPCS: G0105; J2001

== ENCOUNTER 2022-11-28 01:53 | Outpatient (CLI) | payer BC, MEDICARE, SELFPAY ==
[2022-11-28 14:43] LABS: Abs Immature Grans 0.02 10^3/uL (0.0-0.06); Absolute Basophil Count 0.05 10^3/uL (0.0-0.2); Absolute Eosinophil Count 0.09 10^3/uL (0.0-0.7); Absolute Lymphocyte Count 2.89 10^3/uL (1.2-3.4); Absolute Monocyte Count 0.65 10^3/uL (0.1-0.8); Absolute Neutrophil Count 3.91 10^3/uL (1.2-6.7); Basophils % 0.7; Eosinophils % 1.2; HCT 46.3 % (40.0-50.0); HGB 15.6 g/dL (13.5-17.5); Immature Grans % 0.3; MCH 32.4 pg (27.0-33.0); MCHC 33.7 % (32.0-36.0); MCV 96 fL (80-95); MPV 9.9 fL (8.0-11.0); Monocytes % 8.5; Neutrophils % 51.3; Platelet Count 322 10^3/uL (130-400); RBC 4.81 10^6/uL (4.36-5.78); RDW 12.9 % (11.8-14.1); RDW-SD 46.2 fL; WBC 7.61 10^3/uL (4.4-10.8)
[2022-11-28 15:02] LABS: ALT 20 U/L (16-63); AST 12 U/L (15-37); Albumin 3.6 g/dL (3.4-5.0); Alkaline Phosphatase 102 U/L (46-116); Anion Gap 9.4 mmol/L (3-11); BUN 20 mg/dL (7-18); Bilirubin, Total 0.4 mg/dL (0.2-1.0); CO2 26.6 mmol/L (21.0-32.0); CREATININE 1.1 mg/dL (0.70-1.30); Chloride 104 mmol/L (98-107); Estimated GFR 70.44 (mL/min/1.73m2); Glucose 102 mg/dL (74-106); Potassium 4.1 mmol/L (3.5-5.1); Sodium 140 mmol/L (136-145); Total Protein 6.8 g/dL (6.4-8.2)
[2022-11-30 18:06] LABS: PSA, Ultrasensitive 0.03 ng/mL (<= 6.5)
[2022-12-01 19:07] LABS: Testosterone, Total <7.0 ng/dL (240-950)
== END 2022-11-28 01:54 | disposition home or self-care (01) ==
LOC: LBO 01:53
PROVIDERS: PCP Family Medicine; Visit Provider Internal Medicine
DX: C61 Malignant neoplasm of prostate (principal)
CPT/HCPCS: 36415; 80053; 84153; 84403; 85025

== ENCOUNTER 2022-12-25 17:43 | Outpatient (REF) | payer BC, MEDICARE, SELFPAY ==
--- NOTE | 2022-12-25 17:00 | SKI_PTH ---
PATIENT: Cuauhtemoc Avalos [facility] U[facility][id number] AGE/SX: 72/M ROOM: RE12/25/[address]: Torres Fischer : 1950 BED: DIS: 12/25/2022 SPEC #: [id number] RECD: 12/25/22 18:24 STATUS: DIDI MURILLO #: [id number] FANI: 12/25/22 17:[address]: Torres Fischer DEPT: Surgical Specimen RECD BY: Chen Miranda Tissues: 1 - SKIN BIOPSY(SHAVE/PUNCH) Procedures: GROSS AND MICRO LEVEL 4 IMMUNOPEROXIDASE STAIN Comments: [id number]
== END 2022-12-25 17:44 | disposition home or self-care (01) ==
LOC: NCHCN 17:43
PROVIDERS: PCP Family Medicine; Visit Provider Family Medicine
DX: D04.0 Carcinoma in situ of skin of lip (principal)
CPT/HCPCS: 88305; 88361

== ENCOUNTER 2023-01-30 05:40 | Outpatient (CLI) | payer BC, MEDICARE, SELFPAY ==
[2023-01-30 10:50] LABS: Abs Immature Grans 0.01 10^3/uL (0.0-0.06); Absolute Basophil Count 0.04 10^3/uL (0.0-0.2); Absolute Eosinophil Count 0.13 10^3/uL (0.0-0.7); Absolute Lymphocyte Count 2.17 10^3/uL (1.2-3.4); Absolute Monocyte Count 0.71 10^3/uL (0.1-0.8); Basophils % 0.5; Eosinophils % 1.6; HCT 40.5 % (40.0-50.0); HGB 13.8 g/dL (13.5-17.5); Immature Grans % 0.1; Lymphocytes % 27.3; MCH 32.8 pg (27.0-33.0); MCHC 34.1 % (32.0-36.0); MCV 96 fL (80-95); MPV 9.7 fL (8.0-11.0); Monocytes % 8.9; Neutrophils % 61.6; Platelet Count 255 10^3/uL (130-400); RBC 4.21 10^6/uL (4.36-5.78); RDW 12.6 % (11.8-14.1); RDW-SD 45.1 fL; WBC 7.96 10^3/uL (4.4-10.8)
[2023-01-30 11:29] LABS: ALT 26 U/L (16-63); AST 14 U/L (15-37); Albumin 3.3 g/dL (3.4-5.0); Alkaline Phosphatase 103 U/L (46-116); BUN 23 mg/dL (7-18); Bilirubin, Total 0.3 mg/dL (0.2-1.0); CREATININE 1.1 mg/dL (0.70-1.30); Calcium 8.7 mg/dL (8.5-10.1); Chloride 106 mmol/L (98-107); Estimated GFR 70.44 (mL/min/1.73m2); Glucose 107 mg/dL (74-106); Sodium 142 mmol/L (136-145); Total Protein 5.9 g/dL (6.4-8.2)
[2023-02-01 18:48] LABS: PSA, Ultrasensitive 0.02 ng/mL (<= 6.5)
[2023-02-02 12:04] LABS: Testosterone, Total <7.0 ng/dL (240-950)
== END 2023-01-30 05:41 | disposition home or self-care (01) ==
PROVIDERS: PCP Family Medicine; Visit Provider Nurse Practitioner Family
DX: C61 Malignant neoplasm of prostate (principal)
CPT/HCPCS: 36415; 80053; 84153; 84403; 85025